=== PATIENT | male | born 1945 | race Caucasian/White ===

== ENCOUNTER → 2017-07-18 | Outpatient (CLI) | payer OTHER ==
[2017-07-18 14:46] LABS: ALT/SGPT 37 U/L (12-78); BLOOD UREA NITROGEN 18 mg/dl (7-18); BUN/CREATININE RATIO 14.8 (10-20); CALCIUM 9.5 mg/dl (8.5-10.1); CARBON DIOXIDE 24 mmol/L (21-32); CHLORIDE 107 mmol/L (98-107); CHOLESTEROL 237 mg/dl (0-200); GLUCOSE 102 mg/dl (70-99); POTASSIUM 3.9 mmol/L (3.5-5.1); SODIUM 140 mmol/L (136-145)
[2017-07-18 14:53] LABS: ALB/GLOB RATIO 1.1 (0.9-2); ALKALINE PHOSPHATASE 37 U/L (45-117); AST/SGOT 21 U/L (15-37); CHOLESTEROL/HDL RATIO 7.6; HDL CHOLESTEROL 31 mg/dl; LDL CHOLESTEROL CALCULATED 165 mg/dl; TRIGLYCERIDES 205 mg/dl (0-150); VERY LOW DENSITY LIPOPROT CALC 41 mg/dl
[2017-07-19 06:00] LABS: ESTIMATED AVERAGE GLUCOSE 140 mg/dl; HA1C FLAG Normal (Normal)
== END | disposition home or self-care (01) ==
LOC: C.LAB 13:09
PROVIDERS: ATTEND Family Medicine
DX: N40.0 Benign prostatic hyperplasia without lower urinary tract symptoms (principal); E11.39 Type 2 diabetes mellitus with other diabetic ophthalmic complication; E78.5 Hyperlipidemia, unspecified

== ENCOUNTER 2017-10-31 18:16 | Observation (INO) | payer OTHER, BC ==
[~2017-10-31] VITALS: Ht 175.3 cm; Wt 94.3 kg
--- NOTE | 2017-10-31 18:29 | EMERGENCY ROOM VISIT NOTE ---
History Report prepared by Lindsey: Kaushik English Under the Supervision of: Dr. Christopher Ellis M.D. First contact with patient: 18:18 Stated Complaint: CONFUSION, MEMORY ISSUES History of Present Illness The patient is a 72 year old male who presents to the Emergency Room with complaints of confusion that began 2 hours ago. Per the patient's , she states the patient did not remember a discussion about a trip to [place] from earlier today. The patient denies any falls, weakness in upper and lower extremities, headache, double vision, urinary symptoms, cough, chills, runny nose, neck pain, alcohol and drug use, and liver problems. The patient had a hemorrhagic stroke in 2013. Per his , he is back to his baseline currently. Source of History: patient, spouse/significant other Onset: 2 hours ago Position: other (global) Timing: other (1 episode) Associated Symptoms: No chills, No headache, No cough, No neck pain, No urinary symptoms, No weakness Note: Pt denies double vision, runny nose, and liver problems. Review of Systems See HPI for pertinent positives & negatives. A total of 10 systems reviewed and were otherwise negative. Past Medical & Surgical Medical Problems: (1) Memory deficit Social History Marital Status: Housing Status: lives with significant other Current/Historical Medications Scheduled Cholecalciferol (Vitamin D3), 1,000 INTER.UNIT PO DAILY Fenofibrate (Tricor ), 145 MG PO HS Finasteride (Proscar), 5 MG PO HS Fish Oil (Riggins-3), 1 CAP PO BID Losartan Potassium (Losartan Potassium), 25 MG PO HS Metformin Hcl (Glucophage), 1,000 MG PO BID [Prostrate], 2.4 MG PO BID Physical Exam Vital Signs Date Time Temp Pulse Resp B/P (MAP) Pulse Ox O2 Delivery O2 Flow Rate FiO2 10/31/17 19:31 81 18 133/87 93 Room Air 10/31/17 18:28 89 10/31/17 18:18 36.5 77 18 164/98 96 Room Air Physical Exam GENERAL: Patient is well appearing and in no acute distress. HEENT: No acute trauma, normocephalic atraumatic, mucous membranes moist, no nasal congestion, no scleral icterus. NECK: No stridor, no adenopathy, no meningismus, trachea is midline. LUNGS: No dyspnea. Clear to auscultation and equal bilaterally. No wheeze, no rhonchi. HEART: Regular rate and rhythm. No murmurs, rubs, gallops appreciated. ABDOMEN: Soft, nontender, bowel sounds positive, no masses appreciated, no peritonitis. BACK: No midline tenderness, no CVA tenderness EXTREMITIES: Normal motion all extremities, no cyanosis, no edema. NEUROLOGIC: Alert and oriented, no acute motor or sensory deficits, no focal weakness, cranial nerves grossly intact. SKIN: No rash, no jaundice, no diaphoresis. Medical Decision & Procedures ER Provider Diagnostic Interpretation: Radiology results and stated below per my review and radiologist interpretation: CHEST ONE VIEW PORTABLE CLINICAL HISTORY: Altered mental status. COMPARISON STUDY: No previous studies for comparison. FINDINGS: Lung volumes are normal. No pneumothorax or pleural effusion is present. There is no consolidation to suggest pneumonia. Apparent hazy left basilar opacity is likely artifactual. There is mild cardiomegaly without evidence of pulmonary edema. IMPRESSION: No acute cardiopulmonary findings. Electronically signed by: James Kim M.D. 10/31/2017 6:43 PM Dictated Date/Time: 10/31/2017 6:[address] OF THE HEAD WITHOUT CONTRAST CLINICAL HISTORY: Altered mental status. COMPARISON STUDY: No previous studies for comparison. CT DOSE: 537.48 mGy.cm TECHNIQUE: Helical axial images of the head were obtained without IV contrast. Automated exposure control was utilized for the study. A dose lowering technique was utilized adhering to the principles of ALARA. FINDINGS: No acute intracranial hemorrhage, midline shift or mass effect is present. Encephalomalacia within the right parieto-occipital region reflects an old infarct. There is expected dilatation of the occipital horn of the right lateral ventricle. The basilar cisterns are patent. There are no extra-axial collections. There are no findings to suggest acute dural sinus thrombosis or acute territorial infarct. There are no significant calvarial abnormalities. Visualized portions of the sinuses and mastoid air cells are clear. IMPRESSION: 1. No acute intracranial findings. 2. 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 Electronically signed by: James Kim M.D. 10/31/2017 7:17 PM Dictated Date/Time: 10/31/2017 7:15 PM Laboratory Results 10/31/17 18:36 Red Blood Count 4.80, Mean Corpuscular Volume 91.3, Mean Corpuscular Hemoglobin 30.4, Mean Corpuscular Hemoglobin Concent 33.3, Mean Platelet Volume 9.1, Neutrophils (%) (Auto) 60.7, Lymphocytes (%) (Auto) 31.5, Monocytes (%) (Auto) 6.3, Eosinophils (%) (Auto) 1.0, Basophils (%) (Auto) 0.1, Neutrophils # (Auto) 6.04, Lymphocytes # (Auto) 3.13, Monocytes # (Auto) 0.63, Eosinophils # (Auto) 0.10, Basophils # (Auto) 0.01 10/31/17 18:36 Test 10/31/17 18:24 10/31/17 18:36 White Blood Count 9.95 K/uL (4.8-10.8) Red Blood Count 4.80 M/uL (4.7-6.1) Hemoglobin 14.6 g/dL (14.0-18.0) Hematocrit 43.8 % (42-52) Mean Corpuscular Volume 91.3 fL (80-100) Mean Corpuscular Hemoglobin 30.4 pg (25-34) Mean Corpuscular Hemoglobin Concent 33.3 g/dl (32-36) Platelet Count 371 K/uL (130-400) Mean Platelet Volume 9.1 fL (7.4-10.4) Neutrophils (%) (Auto) 60.7 % Lymphocytes (%) (Auto) 31.5 % Monocytes (%) (Auto) 6.3 % Eosinophils (%) (Auto) 1.0 % Basophils (%) (Auto) 0.1 % Neutrophils # (Auto) 6.04 K/uL (1.4-6.5) Lymphocytes # (Auto) 3.13 K/uL (1.2-3.4) Monocytes # (Auto) 0.63 K/uL (0.11-0.59) Eosinophils # (Auto) 0.10 K/uL (0-0.5) Basophils # (Auto) 0.01 K/uL (0-0.2) RDW Standard Deviation 45.6 fL (36.4-46.3) RDW Coefficient of Variation 13.7 % (11.5-14.5) Immature Granulocyte % (Auto) 0.4 % Immature Granulocyte # (Auto) 0.04 K/uL (0.00-0.02) Prothrombin Time 11.2 SECONDS (9.0-12.0) Prothromb Time International Ratio 1.1 (0.9-1.1) Activated Partial Thromboplast Time 25.2 SECONDS (21.0-31.0) Partial Thromboplastin Ratio 1.0 Anion Gap 7.0 mmol/L (3-11) Est Creatinine Clear Calc Drug Dose 53.5 ml/min Estimated GFR () 57.4 Estimated GFR (Non- 49.5 BUN/Creatinine Ratio 16.6 (10-20) Calcium Level 9.5 mg/dl (8.5-10.1) Total Bilirubin 0.4 mg/dl (0.2-1) Direct Bilirubin < 0.1 mg/dl (0-0.2) Aspartate Amino Transf (AST/SGOT) 25 U/L (15-37) Alanine Aminotransferase (ALT/SGPT) 43 U/L (12-78) Alkaline Phosphatase 35 U/L (45-117) Troponin I < 0.015 ng/ml (0-0.045) Total Protein 7.8 gm/dl (6.4-8.2) Albumin 3.9 gm/dl (3.4-5.0) Laboratory results as reviewed by me. Medications Administered Medications (Trade) Dose Ordered Sig/Shayne Route Start Time Stop Time Status Last Admin Dose Admin Sodium Chloride 1,000 ml @ 999 mls/hr Q1H1M STAT IV 10/31/17 19:20 10/31/17 20:20 DC 10/31/17 19:20 999 MLS/HR ECG Indication: other (confusion) Rate (beats per minute): 85 Rhythm: normal sinus Findings: no acute ischemic change, no ectopy ED Course 1817: The patient was evaluated in room B7. A complete history and physical exam was performed. 1926: I checked on the patient and they are doing better. 1939: I discussed the patient's case with Dr. Barksdale. The patient will be evaluated for further treatment and disposition. Medical Decision Differential: CVA/TIA, Seizure, Infectious, ICH, Cardiac, Electrolyte, amongst other pathologies entertained. 72 yr old male arrives following prolonged episode of confusion this evening extending even for EMS ride though essentially resolved on arrival. Exam benign. history of hemorrhagic occipital stroke with visual field deficits but otherwise no neuro deficits. Work-up unremarkable. He is not on any blood thinners. Unclear cause but suspect this was TIA vs partial seizure. May have been dehydration though no real reason to have this. Medication Reconcilliation Current Medication List: was personally reviewed by me Blood Pressure Screening Patient's blood pressure: Elevated blood pressure Blood pressure disposition: Elevated BP felt to be situational Consults Time Called: 1938 Consulting Physician: Dr. Barksdale - [facility] [place] Returned Call: 1939 I discussed the patient's case with Dr. Barksdale. The patient will be evaluated for further treatment and disposition. Impression Primary Impression: Altered mental status Scribe Attestation The scribe's documentation has been prepared under my direction and personally reviewed by me in its entirety. I confirm that the note above accurately reflects all work, treatment, procedures, and medical decision making performed by me. Departure Information Referrals Moo Montero M.D. (PCP)
--- NOTE | 2017-10-31 18:45 | DIAGNOSTIC IMAGING REPORT ---
CHEST ONE VIEW PORTABLE CLINICAL HISTORY: Altered mental status. COMPARISON STUDY: No previous studies for comparison. FINDINGS: Lung volumes are normal. No pneumothorax or pleural effusion is present. There is no consolidation to suggest pneumonia. Apparent hazy left basilar opacity is likely artifactual. There is mild cardiomegaly without evidence of pulmonary edema. IMPRESSION: No acute cardiopulmonary findings. Electronically signed by: James Kim M.D. 10/31/2017 6:43 PM Dictated Date/Time: 10/31/2017 6:43 PM
[2017-10-31] MEDS ORDERED: METF-384 PO (18:55)
[2017-10-31] MEDS ORDERED: OMEG10007 PO (18:55)
[2017-10-31] MEDS ORDERED: CHOL1000 PO (18:55)
[2017-10-31] MEDS ORDERED: FENO145T26 PO (18:55)
[2017-10-31] MEDS ORDERED: FINA5TAB PO (18:55)
[2017-10-31] MEDS ORDERED: [UNRECOGNIZED DRUG - OTHER] PO (18:55)
[2017-10-31] MEDS ORDERED: CZR25 PO (18:55)
[2017-10-31 18:58] LABS: BASO % 0.1 %; BASO ABS # 0.01 K/uL (0-0.2); HEMATOCRIT 43.8 % (42-52); HEMOGLOBIN 14.6 g/dL (14.0-18.0); IG# 0.04 K/uL (0.00-0.02); LYMPH % 31.5 %; LYMPH ABS # 3.13 K/uL (1.2-3.4); MEAN CELL VOLUME 91.3 fL (80-100); MEAN CORPUSCULAR HEMOGLOBIN 30.4 pg (25-34); MEAN CORPUSCULAR HGB CONC 33.3 g/dl (32-36); MEAN PLATELET VOLUME 9.1 fL (7.4-10.4); MONO % 6.3 %; MONO ABS # 0.63 K/uL (0.11-0.59); NEUT % 60.7 %; NEUT ABS # 6.04 K/uL (1.4-6.5); PLATELET COUNT 371 K/uL (130-400); RED CELL DISTRIBUTION WIDTH CV 13.7 % (11.5-14.5); RED CELL DISTRIBUTION WIDTH SD 45.6 fL (36.4-46.3); WHITE BLOOD COUNT 9.95 K/uL (4.8-10.8)
[2017-10-31 19:13] LABS: INR 1.1 (0.9-1.1); PTT PATIENT 25.2 SECONDS (21.0-31.0)
[2017-10-31 19:17] LABS: ALBUMIN 3.9 gm/dl (3.4-5.0); BLOOD UREA NITROGEN 23 mg/dl (7-18); CALCIUM 9.5 mg/dl (8.5-10.1); CARBON DIOXIDE 26 mmol/L (21-32); GLUCOSE 110 mg/dl (70-99); POTASSIUM 3.8 mmol/L (3.5-5.1); SODIUM 138 mmol/L (136-145)
--- NOTE | 2017-10-31 19:19 | DIAGNOSTIC IMAGING REPORT ---
CT OF THE HEAD WITHOUT CONTRAST CLINICAL HISTORY: Altered mental status. COMPARISON STUDY: No previous studies for comparison. CT DOSE: 537.48 mGy.cm TECHNIQUE: Helical axial images of the head were obtained without IV contrast. Automated exposure control was utilized for the study. A dose lowering technique was utilized adhering to the principles of ALARA. FINDINGS: No acute intracranial hemorrhage, midline shift or mass effect is present. Encephalomalacia within the right parieto-occipital region reflects an old infarct. There is expected dilatation of the occipital horn of the right lateral ventricle. The basilar cisterns are patent. There are no extra-axial collections. There are no findings to suggest acute dural sinus thrombosis or acute territorial infarct. There are no significant calvarial abnormalities. Visualized portions of the sinuses and mastoid air cells are clear. IMPRESSION: 1. No acute intracranial findings. 2. 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 Electronically signed by: James Kim M.D. 10/31/2017 7:17 PM Dictated Date/Time: 10/31/2017 7:15 PM
[2017-10-31] MEDS ORDERED: SODIUM CHLORIDE 0.9% 1000ML 1,000 ML IV STA (19:20)
[2017-10-31 19:34] LABS: ALKALINE PHOSPHATASE 35 U/L (45-117); ALT/SGPT 43 U/L (12-78); AST/SGOT 25 U/L (15-37); TOTAL PROTEIN 7.8 gm/dl (6.4-8.2)
[2017-10-31] MEDS ORDERED: IV FLUIDS COMPLETED PRN (21:00)
[2017-10-31] MEDS ORDERED: MoRPHine SULFATE 2 MG/ML CARP IV PRN (21:00)
[2017-10-31] MEDS ORDERED: ALUMINUM/MAGNESIUM/SIMETH (MAALOX MAX) 30 ML UDC PO PRN (21:00)
[2017-10-31] MEDS ORDERED: MAGNESIUM HYDROXIDE SUSP 30 ML UDC PO PRN (21:00)
[2017-10-31] MEDS ORDERED: ONDANSETRON INJ 2 MG/ML 2 ML VIAL IV PRN (21:00)
[2017-10-31] MEDS ORDERED: ACETAMINOPHEN 325 MG TAB PO PRN (21:00)
[2017-10-31] MEDS ORDERED: PHARMACIST DISCHARGE MED REC CONSULT PRN (21:00)
[2017-10-31] MEDS ORDERED: POLYETHYLENE (MIRALAX) 17 GM PACK PO PRN (21:00)
[2017-10-31] MEDS ORDERED: PATIENT'S ALLERGY INFO NEEDS ENTERED STA (21:19)
--- NOTE | 2017-10-31 21:41 | History and Physical ---
History & Physical Date & Time of Service: Oct 31, 2017 at 21:12 Chief Complaint: Confusion, Memory Issues Primary Care Physician: Caleb Moss D.O. History of Present Illness Source: patient 72 y/o M Hx HTN, HPL, spontaneous ICH 2013. Late afternoon, the pt exhibited acute memory loss and what his describes as a flat affect lasting approximately one hour. The pt denies a headache, fever, N/V, lightheadedness. He has not had scott such episodes and has fully recovered his memory at the time of admission. 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 Smoking Status: Former Smoker Marital Status: Home Medications Scheduled Cholecalciferol (Vitamin D3), 1,000 INTER.UNIT PO DAILY Fenofibrate (Tricor ), 145 MG PO HS Finasteride (Proscar), 5 MG PO HS Fish Oil (Pettus-3), 1 CAP PO BID Losartan Potassium (Losartan Potassium), 25 MG PO HS Metformin Hcl (Glucophage), 1,000 MG PO BID [Prostrate], 2.4 MG PO BID Review of Systems Constitutional: No fever, No chills, No sweats Eyes: No worsening of vision ENT: No hearing loss, No nasal symptoms Respiratory: No cough, No sputum, No wheezing Cardiovascular: No chest pain Abdomen: No pain, No nausea, No vomiting Musculoskeletal: No joint pain Genitourinary - Male: No hematuria Neurologic: + memory loss, + problem reported (Chronic visual deficits) Psychiatric: No depression symptoms Endocrine: No fatigue Hematologic / Lymphatic: No abnormal bleeding/bruising Integumentary: No rash Allergic / Immunologic: No environmental allergies Physical Exam Vital Signs Date Time Temp Pulse Resp B/P (MAP) Pulse Ox O2 Delivery O2 Flow Rate FiO2 10/31/17 21:08 78 18 123/73 96 Room Air 10/31/17 19:31 81 18 133/87 93 Room Air 10/31/17 18:28 89 10/31/17 18:18 36.5 77 18 164/98 96 Room Air General Appearance: WD/WN, no apparent distress Head: normocephalic Eyes: normal inspection ENT: normal ENT inspection, pharynx normal Neck: supple, no JVD Respiratory/Chest: chest non-tender, lungs clear, normal breath sounds Cardiovascular: regular rate, rhythm, no edema, no gallop Abdomen/GI: normal bowel sounds, non tender, soft Back: normal inspection, no CVA tenderness, no muscle spasm, normal range of motion Extremities/Musculoskelatal: normal inspection, no calf tenderness, normal capillary refill Neurologic/Psych: grain grader II-XII nml as tested, no motor/sensory deficits, alert, oriented x 3, + pertinent finding (Pt has peripheral field deficits - does not note a change - memory is intact - short and long-term) Skin: normal color, warm/dry, no rash Diagnostics Laboratory Results Results Past 24 Hours Test 10/31/17 18:36 10/31/17 21:10 Range/Units White Blood Count 9.95 4.8-10.8 K/uL Red Blood Count 4.80 4.7-6.1 M/uL Hemoglobin 14.6 14.0-18.0 g/dL Hematocrit 43.8 42-52 % Mean Corpuscular Volume 91.3 80-100 fL Mean Corpuscular Hemoglobin 30.4 25-34 pg Mean Corpuscular Hemoglobin Concent 33.3 32-36 g/dl Platelet Count 371 130-400 K/uL Mean Platelet Volume 9.1 7.4-10.4 fL Neutrophils (%) (Auto) 60.7 % Lymphocytes (%) (Auto) 31.5 % Monocytes (%) (Auto) 6.3 % Eosinophils (%) (Auto) 1.0 % Basophils (%) (Auto) 0.1 % Neutrophils # (Auto) 6.04 1.4-6.5 K/uL Lymphocytes # (Auto) 3.13 1.2-3.4 K/uL Monocytes # (Auto) 0.63 0.11-0.59 K/uL Eosinophils # (Auto) 0.10 0-0.5 K/uL Basophils # (Auto) 0.01 0-0.2 K/uL RDW Standard Deviation 45.6 36.4-46.3 fL RDW Coefficient of Variation 13.7 11.5-14.5 % Immature Granulocyte % (Auto) 0.4 % Immature Granulocyte # (Auto) 0.04 0.00-0.02 K/uL Prothrombin Time 11.2 9.0-12.0 SECONDS Prothromb Time International Ratio 1.1 0.9-1.1 Activated Partial Thromboplast Time 25.2 21.0-31.0 SECONDS Partial Thromboplastin Ratio 1.0 Sodium Level 138 136-145 mmol/L Potassium Level 3.8 3.5-5.1 mmol/L Chloride Level 105 98-107 mmol/L Carbon Dioxide Level 26 21-32 mmol/L Anion Gap 7.0 3-11 mmol/L Blood Urea Nitrogen 23 7-18 mg/dl Creatinine 1.40 0.60-1.40 mg/dl Est Creatinine Clear Calc Drug Dose 53.5 ml/min Estimated GFR () 57.4 Estimated GFR (Non- 49.5 BUN/Creatinine Ratio 16.6 10-20 Random Glucose 110 70-99 mg/dl Calcium Level 9.5 8.5-10.1 mg/dl Total Bilirubin 0.4 0.2-1 mg/dl Direct Bilirubin < 0.1 0-0.2 mg/dl Aspartate Amino Transf (AST/SGOT) 25 15-37 U/L Alanine Aminotransferase (ALT/SGPT) 43 12-78 U/L Alkaline Phosphatase 35 45-117 U/L Troponin I < 0.015 0-0.045 ng/ml Total Protein 7.8 6.4-8.2 gm/dl Albumin 3.9 3.4-5.0 gm/dl Diagnostic Radiology 1. No acute intracranial findings. 2. 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 Impression Assessment and Plan 72 y/o M Hx HTN, HPL, spontaneous ICH 2013. Late afternoon, the pt exhibited acute memory loss and what his describes as a flat affect lasting approximately one hour. The pt denies a headache, fever, N/V, lightheadedness. He has not had scott such episodes and has fully recovered his memory at the time of admission. 1) Transient memory loss - consider TIA, TGA, seizure - neurology is consulted. MRI/MRA ordered. Assigned to telemetry with neurochecks. The pt was instructed to avoid ASA and Statins following his spontaneous ICH - it might make sense to consider Statin therapy now - will defer to neurology. 2) HTN - he has not been hypotensive and considering his presentation and history of ICH, we will continue his HTN meds presently. 3) HPL - cont Fenofibrate - again - would consider Statin therapy if the above is deemed likely due to a TIA. Full code - SCDs Total time for this admit including review of labs, meds, imaging - discussion with pt and ER attending - 38 min Level of Care Telemetry Resuscitation Status FULL RESUSCITATION VTE Prophylaxis VTE Risk Assessment Done? Y/N: Yes Risk Level: Low Given or contraindicated: SCD's
[2017-10-31] MEDS ORDERED: GADAVIST IV PRN (22:15)
--- NOTE | 2017-10-31 22:29 | DIAGNOSTIC IMAGING REPORT ---
MRI OF THE BRAIN WITHOUT CONTRAST CLINICAL HISTORY: Confusion. Memory issues. Evaluate for stroke. COMPARISON STUDY: Head CT performed earlier today. TECHNIQUE: Utilizing a 1.5 Laura magnet and dedicated coil, multiplanar, multiecho imaging of the brain was performed without IV contrast. FINDINGS: There is an equivocal punctate acute infarct within the superior medial left frontal lobe shown on axial image 19 of 46. This may be artifactual. An old right parietooccipital infarct is noted with encephalomalacia. Expected dilatation of the occipital horn of the right lateral ventricle is noted. The basilar cisterns are patent. There are no extra-axial collections. Flow-voids for the major intracranial vessels are present. No intracranial masses are identified on this unenhanced examination. White matter T2 hyperintense foci suggest small vessel disease. There is trace fluid within the inferior left mastoid air cells. IMPRESSION: 1. Equivocal punctate acute infarct within the superior medial left frontal lobe. 2. 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 Electronically signed by: James Kim M.D. 10/31/2017 10:28 PM Dictated Date/Time: 10/31/2017 10:24 PM
--- NOTE | 2017-10-31 22:33 | DIAGNOSTIC IMAGING REPORT ---
MRA OF THE INTRACRANIAL CIRCULATION WITHOUT CONTRAST CLINICAL HISTORY: Stroke - Attention to [place] [facility] [place] COMPARISON STUDY: None. TECHNIQUE: Utilizing a 1.5 Laura magnet and 3-D [id number] technique, unenhanced MRA of the intracranial circulation was obtained. FINDINGS: The bilateral M1, M2, A1 and A2 segments are patent. No intracranial aneurysm is identified. There is no abrupt vessel cut off within the anterior circulation. There is cut off of a branch of the right posterior cerebral artery which accounts for the old infarct shown on MRI of the brain. No additional sites of abrupt vessel cut off identified. IMPRESSION: 1. Cut off of a branch of the right posterior cerebral artery which accounts for the old infarct shown on MRI of the brain. 2. No intracranial aneurysm. Electronically signed by: James Kim M.D. 10/31/2017 10:32 PM Dictated Date/Time: 10/31/2017 10:28 PM
[2017-10-31 22:36] VITALS: BP 149/72; PULSE 74; TEMP 36.5; Ht 175.3 cm; Wt 94.3 kg
--- NOTE | 2017-10-31 22:49 | DIAGNOSTIC IMAGING REPORT ---
MRA OF THE NECK WITH AND WITHOUT CONTRAST CLINICAL HISTORY: Stroke COMPARISON STUDY: None. TECHNIQUE: Unenhanced and contrast-enhanced MRA of the neck was performed. Injection of 9.5 mL of Gadavist IV was uneventful. NASCET criteria were utilized to estimate the degree of carotid stenosis. FINDINGS: There is no significant stenosis within the bilateral common carotid or internal carotid arteries. There is no evidence for dissection within these vessels. The origin of the right vertebral artery is suboptimally assessed on this examination. The bilateral vertebral arteries are patent. There is possible stenosis at the origin of the right vertebral artery. IMPRESSION: 1. No significant stenosis within the bilateral common carotid or internal carotid arteries. 2. Possible stenosis at the origin of the right vertebral artery which is suboptimally assessed on this exam. Electronically signed by: James Kim M.D. 10/31/2017 10:48 PM Dictated Date/Time: 10/31/2017 10:44 PM
[2017-10-31] MEDS ORDERED: LATA0.5S OP (23:01)
[2017-10-31] MEDS ORDERED: ALPPOPS5 OP (23:02)
[2017-10-31 23:49] VITALS: BP 132/71; PULSE 69; TEMP 36.8; O2SAT 94
[2017-11-01] MEDS ORDERED: PATIENT'S ALLERGY INFO NEEDS ENTERED SCH (00:45)
[2017-11-01] MEDS: OMEGA-3 (PURIFIED FISH OIL) 1 GM CAP PO SCH ×2 (02:30→08:33)
[2017-11-01] MEDS ORDERED: FINASTERIDE 5 MG TAB PO SCH (02:30)
[2017-11-01] MEDS ORDERED: LOSARTAN POTASSIUM 25 MG TAB PO SCH (02:30)
[2017-11-01] MEDS ORDERED: FENOFIBRATE 145 MG TAB PO SCH (02:30)
[2017-11-01 04:00] VITALS: BP 113/71; PULSE 67; TEMP 36.9; O2SAT 95
[2017-11-01 06:02] LABS: BASO % 0.1 %; BASO ABS # 0.01 K/uL (0-0.2); EOS % 1.8 %; EOS ABS # 0.14 K/uL (0-0.5); HEMATOCRIT 39.4 % (42-52); HEMOGLOBIN 13.1 g/dL (14.0-18.0); IG# 0.02 K/uL (0.00-0.02); LYMPH % 41.2 %; LYMPH ABS # 3.28 K/uL (1.2-3.4); MEAN CELL VOLUME 91.2 fL (80-100); MEAN CORPUSCULAR HEMOGLOBIN 30.3 pg (25-34); MEAN CORPUSCULAR HGB CONC 33.2 g/dl (32-36); MONO % 9.2 %; MONO ABS # 0.73 K/uL (0.11-0.59); NEUT % 47.4 %; NEUT ABS # 3.78 K/uL (1.4-6.5); PLATELET COUNT 323 K/uL (130-400); RED CELL DISTRIBUTION WIDTH CV 13.7 % (11.5-14.5); RED CELL DISTRIBUTION WIDTH SD 45.8 fL (36.4-46.3); WHITE BLOOD COUNT 7.96 K/uL (4.8-10.8)
[2017-11-01 06:37] LABS: CALCIUM 8.6 mg/dl (8.5-10.1); CREATININE 1.16 mg/dl (0.60-1.40); POTASSIUM 3.7 mmol/L (3.5-5.1)
[2017-11-01 07:19] LABS: HEMOGLOBIN A1C 6.5 % (4.5-5.6)
[2017-11-01 07:22] VITALS: BP 129/75; PULSE 61; TEMP 36.6; O2SAT 95
[2017-11-01 08:00] VITALS: O2SAT 95
[2017-11-01] MEDS ORDERED: INFLUENZA VIRUS QUAD VACCINE 0.5 ML SYR IM. ONE (08:00)
[2017-11-01] MEDS ORDERED: INFLUENZA ADMINISTRATION CHARGE ONE (08:00)
[2017-11-01] MEDS ORDERED: ATORVASTATIN 40 MG TAB PO SCH (09:00)
[2017-11-01] MEDS ORDERED: ASPIRIN/ALUM/MAGNES/CAL CARB 325 MG TAB PO SCH (09:00)
[2017-11-01 11:13] VITALS: BP 157/82; PULSE 66; TEMP 36.7; O2SAT 94
--- NOTE | 2017-11-01 13:44 | Neurology Consultation ---
Neurology Consultation Date of Consultation: Nov 01, 2017. Attending Physician: Wade Barksdale M.D. Primary Care Physician: Caleb Moss D.O. Reason for Consultation: Consultation for acute mental status episode History of Present Illness Source: patient, family, hospital records This is a 72-year-old male who presents for the above evaluation. Patient does not remember the episode. Per family patient reported 1-2 hours of flat affect plus confusion. He was constantly repeating the same questions over and over again every few minutes without remembering that she had already discussed it with him. No new numbness or weakness. No visual changes. No recent illnesses. No fevers. No flulike symptoms. Patient denies any chest pain or heart palpitations. No shortness of breath. After a couple of hours the patient was back to his neurological baseline. Patient does have some thickened history for having a hemorrhagic stroke in 2013. He reports at the time it was believed to be secondary to high blood pressure but he was taken off aspirin and statin as a precaution. He was told by the neurologist at the time that the use of statin in hemorrhagic stroke was controversial. Lab work was reviewed. The patient did have mildly elevated BUN and creatinine which could've indicated a dehydrated state. Total cholesterol 216, LDL 136, HDL 20, triglycerides 299. Hemoglobin A1c 6.5 Vitals and blood pressure appeared stable MRI of the brain report and images were reviewed by myself. 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 There was a tiny ditzle in the left frontal area. Was only seen on one MRI slice , and appeared to be artifactual. Radiology reports that it could be a questionable punctate acute ischemic infarct versus artifact. I did not see any signs on MRI consistent with amyloid angiopathy. 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 Occasional alcohol use. No tobacco use. Marital Status: Housing Status: lives with significant other Allergies Coded Allergies: No Known Allergies (Unverified , 11/01/17) Current Inpatient Medications Current Inpatient Medications Medications (Trade) Dose Ordered Sig/Shayne Route Start Time Stop Time Status Last Admin Dose Admin Fenofibrate (Tricor Tab) 145 mg HS PO 11/01/17 02:30 12/01/17 02:29 Finasteride (Proscar Tab) 5 mg HS PO 11/01/17 02:30 12/01/17 02:29 Fish Oil (Martell-3 (Purified Fish Oil) Cap) 1 gm BID PO 11/01/17 02:30 12/01/17 02:29 11/01/17 08:33 1 GM Losartan Potassium (coZAAR TAB) 25 mg HS PO 11/01/17 02:30 12/01/17 02:29 Miscellaneous Information (Pharmacist Discharge Med Rec Consult) 1 ea UD PRN N/A 10/31/17 21:00 11/30/17 20:59 Acetaminophen (Tylenol Tab) 650 mg Q4H PRN PO 10/31/17 21:00 11/30/17 20:59 11/01/17 12:50 650 MG Al Hydrox/Mg Hydrox/Simethicone (Maalox Max Susp) 15 ml Q4H PRN PO 10/31/17 21:00 11/30/17 20:59 Magnesium Hydroxide (Milk Of Magnesia Susp) 30 ml Q12H PRN PO 10/31/17 21:00 11/30/17 20:59 Ondansetron HCl (Zofran Inj) 4 mg Q6H PRN IV 10/31/17 21:00 11/30/17 20:59 Morphine Sulfate (MoRPHine SULFATE INJ) 2 mg Q30M PRN IV 10/31/17 21:00 11/14/17 20:59 Polyethylene (Miralax Powder Packet) 17 gm DAILY PRN PO 10/31/17 21:00 11/30/17 20:59 Miscellaneous (Iv Fluids Completed) 1 ea PRN PRN N/A 10/31/17 21:00 10/31/18 20:59 Gadobutrol (Gadavist) 9.5 mmol UD PRN IV 10/31/17 22:15 11/04/17 22:14 Review of Systems Complete review of systems otherwise negative except for the above noted in history of present illness Physical Exam Vital Signs (Past 24 Hrs): Date Time Temp Pulse Resp B/P (MAP) Pulse Ox O2 Delivery O2 Flow Rate FiO2 1/6/18 11:13 36.7 66 18 157/82 (107) 94 Room Air 11/01/17 08:00 95 Room Air 11/01/17 07:22 36.6 61 18 129/75 (93) 95 Room Air 11/01/17 04:00 36.9 67 17 113/71 (85) 95 Room Air 11/01/17 04:00 Room Air 11/01/17 00:00 Room Air 10/31/17 23:49 36.8 69 18 132/71 (91) 94 Room Air 10/31/17 22:36 36.5 74 18 149/72 Room Air 10/31/17 21:08 78 18 123/73 96 Room Air 10/31/17 19:31 81 18 133/87 93 Room Air 10/31/17 18:28 89 10/31/17 18:18 36.5 77 18 164/98 96 Room Air Gen.: Patient is alert and sitting in bed, in no acute distress. HEENT: Normocephalic /atraumatic, no scleral icterus Heart: Regular rate and rhythm Extremities: No gross deformities or rashes noted Neurological examination: Mental status: Patient is alert and oriented x3. Attention and concentration normal for the situation. Good fund of knowledge. Remote and recent memory intact. Speech is fluent without any dysarthria or aphasia noted Cranial nerve: Left homonomous hemianopsia on visual field testing. Funduscopic examination was unremarkable. No papilledema. Pupils equally round and reactive to light. Extraocular muscles intact without nystagmus. No facial asymmetry noted. Facial sensation intact. Tongue is midline. Good palatal elevation. Good shoulder shrug bilaterally. Hearing grossly intact to voice. Strength: 5/5 both proximal and distally in all extremities. There is no arm drift. Tone is normal. Sensation: Grossly intact to light touch in all extremities. Deep tendon reflexes: +1 in bilateral biceps, brachioradialis and patellar. Toes were equivocal to plantar stimulation Coordination: Patient had good finger to nose without dysmetria Station within the bed was normal Laboratory Results Past 24 Hours: 11/01/17 05:38 Red Blood Count 4.32, Mean Corpuscular Volume 91.2, Mean Corpuscular Hemoglobin 30.3, Mean Corpuscular Hemoglobin Concent 33.2, Mean Platelet Volume 9.0, Neutrophils (%) (Auto) 47.4, Lymphocytes (%) (Auto) 41.2, Monocytes (%) (Auto) 9.2, Eosinophils (%) (Auto) 1.8, Basophils (%) (Auto) 0.1, Neutrophils # (Auto) 3.78, Lymphocytes # (Auto) 3.28, Monocytes # (Auto) 0.73, Eosinophils # (Auto) 0.14, Basophils # (Auto) 0.01 11/01/17 05:38 Test 10/31/17 18:36 10/31/17 21:00 11/01/17 05:38 11/01/17 11:44 Prothrombin Time 11.2 SECONDS (9.0-12.0) Prothromb Time International Ratio 1.1 (0.9-1.1) Activated Partial Thromboplast Time 25.2 SECONDS (21.0-31.0) Partial Thromboplastin Ratio 1.0 Estimated Average Glucose 140 mg/dl Hemoglobin A1c 6.5 % (4.5-5.6) Total Bilirubin 0.4 mg/dl (0.2-1) Direct Bilirubin < 0.1 mg/dl (0-0.2) Aspartate Amino Transf (AST/SGOT) 25 U/L (15-37) Alanine Aminotransferase (ALT/SGPT) 43 U/L (12-78) Alkaline Phosphatase 35 U/L (45-117) Troponin I < 0.015 ng/ml (0-0.045) Total Protein 7.8 gm/dl (6.4-8.2) Albumin 3.9 gm/dl (3.4-5.0) Urine Color YELLOW Urine Appearance CLEAR (CLEAR) Urine pH 5.0 (4.5-7.5) Urine Specific [place] 1.024 (1.000-1.030) Urine Protein NEG (NEG) Urine Glucose (UA) NEG (NEG) Urine Ketones NEG (NEG) Urine Occult Blood NEG (NEG) Urine Nitrite NEG (NEG) Urine Bilirubin NEG (NEG) Urine Urobilinogen NEG (NEG) Urine Leukocyte Esterase NEG (NEG) Urine WBC (Auto) 1-5 /hpf (0-5) Urine RBC (Auto) 0-4 /hpf (0-4) Urine Hyaline Casts (Auto) 1-5 /lpf (0-5) Urine Epithelial Cells (Auto) 5-10 /lpf (0-5) Urine Bacteria (Auto) NEG (NEG) White Blood Count 7.96 K/uL (4.8-10.8) Red Blood Count 4.32 M/uL (4.7-6.1) Hemoglobin 13.1 g/dL (14.0-18.0) Hematocrit 39.4 % (42-52) Mean Corpuscular Volume 91.2 fL (80-100) Mean Corpuscular Hemoglobin 30.3 pg (25-34) Mean Corpuscular Hemoglobin Concent 33.2 g/dl (32-36) Platelet Count 323 K/uL (130-400) Mean Platelet Volume 9.0 fL (7.4-10.4) Neutrophils (%) (Auto) 47.4 % Lymphocytes (%) (Auto) 41.2 % Monocytes (%) (Auto) 9.2 % Eosinophils (%) (Auto) 1.8 % Basophils (%) (Auto) 0.1 % Neutrophils # (Auto) 3.78 K/uL (1.4-6.5) Lymphocytes # (Auto) 3.28 K/uL (1.2-3.4) Monocytes # (Auto) 0.73 K/uL (0.11-0.59) Eosinophils # (Auto) 0.14 K/uL (0-0.5) Basophils # (Auto) 0.01 K/uL (0-0.2) RDW Standard Deviation 45.8 fL (36.4-46.3) RDW Coefficient of Variation 13.7 % (11.5-14.5) Immature Granulocyte % (Auto) 0.3 % Immature Granulocyte # (Auto) 0.02 K/uL (0.00-0.02) Anion Gap 9.0 mmol/L (3-11) Est Creatinine Clear Calc Drug Dose 64.3 ml/min Estimated GFR () 72.0 Estimated GFR (Non- 62.1 BUN/Creatinine Ratio 20.5 (10-20) Calcium Level 8.6 mg/dl (8.5-10.1) Triglycerides Level 299 mg/dl (0-150) Cholesterol Level 216 mg/dl (0-200) HDL Cholesterol 20 mg/dl LDL Cholesterol, Calculated 136 mg/dl VLDL Cholesterol, Calculated 60 mg/dl Cholesterol/HDL Ratio 10.8 Bedside Glucose 103 mg/dl (70-99) Imaging As noted above in history of present illness Impression This is a 72-year-old male who 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 There is a questionable finding on MRI of punctate lesion in the left frontal lobe indicating artifact versus ischemia. Otherwise the patient is at his neurological baseline with residual left homonomous hemianopsia from hemorrhagic stroke in 2014. Plan I have ordered a repeat MRI of the brain. My sense is that this is an artifact, but if repeat MRI of the brain confirms small area of acute ischemia, the patient needs further stroke workup. Discussed diagnosis of transient global amnesia with the patient and his daughter. Discussed that typically one-time event and rarely repeats. Discussed that we do not always know the cause. Also discussed with the patient my recommendations about cholesterol management. Discussed that more recent stroke data indicates that he should be on a statin medication to manage his vascular risk factors with dyslipidemia. Discussed that only a total cholesterol less than 100 puts him at risk for additional hemorrhagic strokes. So long as his total cholesterol is not dropped too low, statin medication would be beneficial for his vascular health and should not put him at increased risk for hemorrhagic strokes. Recommend that he could be started on low dose pravastatin for cholesterol management. 1) If repeat MRI confirms artifact: No additional neurologic workup needed at this time and no neurological barriers to discharge. If the patient has repeat episodes in the future, would need to get an EEG for further evaluation of possible seizure etiology. 2) If repeat MRI confirms punctate ischemic acute stroke: Patient would need echocardiogram to complete stroke workup and I would absolutely recommend that he be put on low-dose pravastatin for stroke prevention. Vascular risk factor modifications and recommendations: Blood pressure recommendations 130/80-110/70 Total cholesterol goal 100- 200 and LDL goal less than 100 Hemoglobin A1c goal less than 7 (at goal) Encourage cardiovascular exercise at least 3 times a week for 30 minutes. Follow-up in neurology clinic in 1 month if repeat MRI shows acute stroke. If repeat MRI shows acute stroke, would also recommend Holter monitor as an outpatient to rule out paroxysmal A. fib If there is any questions or concerns, feel free to call/page me.
--- NOTE | 2017-11-01 14:53 | DIAGNOSTIC IMAGING REPORT ---
MRI OF THE BRAIN WITHOUT CONTRAST CLINICAL HISTORY: Episodic acute change in mental status. Confusion. Memory loss. EQUIVOCAL LEFT FRONTAL LOBE INFARCT COMPARISON STUDY: Noncontrast head CT dated 10/31/2017, MRI the brain dated 10/31/2017. FINDINGS: Sagittal T1, axial diffusion, proton density and T2 weighted axial, coronal FLAIR, and axial T1-weighted images were acquired. No intra or extra-axial mass lesions are visualized Axial diffusion-weighted images reveal no evidence of acute or subacute infarction. The previously queried punctate left frontal lobe infarct is not confirmed on today's study. There is no evidence of ventricular dilatation. Proton density T2-weighted and FLAIR images reveal there is an old right parietal occipital infarct with cystic encephalomalacia There are no abnormal flow voids. Foci of increased T2 signal within the left mastoid remain stable and are likely inflammatory. IMPRESSION: 1. No acute intracranial findings. No evidence of acute or subacute infarction. 2. Old right parieto-occipital infarct Electronically signed by: Ford Pratt M.D. 11/01/2017 2:52 PM Dictated Date/Time: 11/01/2017 2:48 PM
[2017-11-01 15:02] VITALS: BP 167/78; PULSE 59; TEMP 36.9; O2SAT 97
[2017-11-01] MEDS ORDERED: ATOR-26 PO (17:48)
--- NOTE | 2017-11-01 17:54 | Discharge Instructions ---
Discharge Instructions Date of Service Nov 01, 2017. Admission Reason for Admission: Memory Deficit Discharge Discharge Diagnosis / Problem: Transient Global Seizure Discharge Goals Goal(s): Decrease discomfort, Improve function Activity Recommendations Activity Limitations: resume your previous activity . Instructions / Follow-Up Instructions / Follow-Up Vascular risk factor modifications and recommendations: Blood pressure recommendations 130/80-110/70 Total cholesterol goal 100- 200 and LDL goal less than 100 Hemoglobin A1c goal less than 7 (at goal) Encourage cardiovascular exercise at least 3 times a week for 30 minutes. Follow up with PCP in 1-2 weeks Current Hospital Diet Patient's current hospital diet: Regular Diet Discharge Diet Recommended Diet: Regular Diet Pending Studies Studies pending at discharge: no Laboratory Results Hemoglobin A1c Test 10/31/17 18:36 Range/Units Estimated Average Glucose 140 mg/dl Hemoglobin A1c 6.5 H 4.5-5.6 % Lipid Panel Test 11/01/17 05:38 Range/Units Triglycerides Level 299 H 0-150 mg/dl Cholesterol Level 216 H 0-200 mg/dl HDL Cholesterol 20 mg/dl Cholesterol/HDL Ratio 10.8 LDL Cholesterol, Calculated 136 mg/dl Medical Emergencies . Who to Call and When: Medical Emergencies: If at any time you feel your situation is an emergency, please call 911 immediately. . Non-Emergent Contact Non-Emergency issues call your: Primary Care Provider Call Non-Emergent contact if: you have any medication questions . . "Provider Documentation" section prepared by Jude Bautista. . VTE Core Measure Inpt VTE Proph given/why not?: SCD's
[2017-11-01 18:03] VITALS: BP 167/78; PULSE 59; TEMP 36.9; O2SAT 97
--- NOTE | 2017-11-09 21:52 | Discharge Summary ---
Discharge Summary Date of Service Nov 09, 2017. Discharge Summary Admission Date: Oct 31, 2017 at 20:51 Discharge Date: Nov 01, 2017 Discharge Disposition: Home Principal Diagnosis: Transient Global Amnesia Consultations: Neurology Consultation Date of Consultation: Nov 01, 2017. Attending Physician: Wade Barksdale M.D. Primary Care Physician: Caleb Moss D.O. Reason for Consultation: Consultation for acute mental status episode History of Present Illness Source: patient, family, hospital records This is a 72-year-old male who presents for the above evaluation. Patient does not remember the episode. Per family patient reported 1-2 hours of flat affect plus confusion. He was constantly repeating the same questions over and over again every few minutes without remembering that she had already discussed it with him. No new numbness or weakness. No visual changes. No recent illnesses. No fevers. No flulike symptoms. Patient denies any chest pain or heart palpitations. No shortness of breath. After a couple of hours the patient was back to his neurological baseline. Patient does have some thickened history for having a hemorrhagic stroke in 2013. He reports at the time it was believed to be secondary to high blood pressure but he was taken off aspirin and statin as a precaution. He was told by the neurologist at the time that the use of statin in hemorrhagic stroke was controversial. Lab work was reviewed. The patient did have mildly elevated BUN and creatinine which could've indicated a dehydrated state. Total cholesterol 216, LDL 136, HDL 20, triglycerides 299. Hemoglobin A1c 6.5 Vitals and blood pressure appeared stable MRI of the brain report and images were reviewed by myself. 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 There was a tiny ditzle in the left frontal area. Was only seen on one MRI slice , and appeared to be artifactual. Radiology reports that it could be a questionable punctate acute ischemic infarct versus artifact. I did not see any signs on MRI consistent with amyloid angiopathy. 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 Occasional alcohol use. No tobacco use. Marital Status: Housing Status: lives with significant other Allergies Coded Allergies: No Known Allergies (Unverified , 11/01/17) Current Inpatient Medications Current Inpatient Medications Medications (Trade) Dose Ordered Sig/Shayne Route Start Time Stop Time Status Last Admin Dose Admin Fenofibrate (Tricor Tab) 145 mg HS PO 11/01/17 02:30 12/01/17 02:29 Finasteride (Proscar Tab) 5 mg HS PO 11/01/17 02:30 12/01/17 02:29 Fish Oil (Darwin-3 (Purified Fish Oil) Cap) 1 gm BID PO 11/01/17 02:30 12/01/17 02:29 11/01/17 08:33 1 GM Losartan Potassium (coZAAR TAB) 25 mg HS PO 11/01/17 02:30 12/01/17 02:29 Miscellaneous Information (Pharmacist Discharge Med Rec Consult) 1 ea UD PRN N/A 10/31/17 21:00 11/30/17 20:59 Acetaminophen (Tylenol Tab) 650 mg Q4H PRN PO 10/31/17 21:00 11/30/17 20:59 11/01/17 12:50 650 MG Al Hydrox/Mg Hydrox/Simethicone (Maalox Max Susp) 15 ml Q4H PRN PO 10/31/17 21:00 11/30/17 20:59 Magnesium Hydroxide (Milk Of Magnesia Susp) 30 ml Q12H PRN PO 10/31/17 21:00 11/30/17 20:59 Ondansetron HCl (Zofran Inj) 4 mg Q6H PRN IV 10/31/17 21:00 11/30/17 20:59 Morphine Sulfate (MoRPHine SULFATE INJ) 2 mg Q30M PRN IV 10/31/17 21:00 11/14/17 20:59 Polyethylene (Miralax Powder Packet) 17 gm DAILY PRN PO 10/31/17 21:00 11/30/17 20:59 Miscellaneous (Iv Fluids Completed) 1 ea PRN PRN N/A 10/31/17 21:00 10/31/18 20:59 Gadobutrol (Gadavist) 9.5 mmol UD PRN IV 10/31/17 22:15 11/04/17 22:14 Review of Systems Complete review of systems otherwise negative except for the above noted in history of present illness Physical Exam Vital Signs (Past 24 Hrs): Date Time Temp Pulse Resp B/P (MAP) Pulse Ox O2 Delivery O2 Flow Rate FiO2 11/01/17 11:13 36.7 66 18 157/82 (107) 94 Room Air 11/01/17 08:00 95 Room Air 11/01/17 07:22 36.6 61 18 129/75 (93) 95 Room Air 11/01/17 04:00 36.9 67 17 113/71 (85) 95 Room Air 11/01/17 04:00 Room Air 11/01/17 00:00 Room Air 10/31/17 23:49 36.8 69 18 132/71 (91) 94 Room Air 10/31/17 22:36 36.5 74 18 149/72 Room Air 10/31/17 21:08 78 18 123/73 96 Room Air 10/31/17 19:31 81 18 133/87 93 Room Air 10/31/17 18:28 89 10/31/17 18:18 36.5 77 18 164/98 96 Room Air Gen.: Patient is alert and sitting in bed, in no acute distress. HEENT: Normocephalic /atraumatic, no scleral icterus Heart: Regular rate and rhythm Extremities: No gross deformities or rashes noted Neurological examination: Mental status: Patient is alert and oriented x3. Attention and concentration normal for the situation. Good fund of knowledge. Remote and recent memory intact. Speech is fluent without any dysarthria or aphasia noted Cranial nerve: Left homonomous hemianopsia on visual field testing. Funduscopic examination was unremarkable. No papilledema. Pupils equally round and reactive to light. Extraocular muscles intact without nystagmus. No facial asymmetry noted. Facial sensation intact. Tongue is midline. Good palatal elevation. Good shoulder shrug bilaterally. Hearing grossly intact to voice. Strength: 5/5 both proximal and distally in all extremities. There is no arm drift. Tone is normal. Sensation: Grossly intact to light touch in all extremities. Deep tendon reflexes: +1 in bilateral biceps, brachioradialis and patellar. Toes were equivocal to plantar stimulation Coordination: Patient had good finger to nose without dysmetria Station within the bed was normal Laboratory Results Past 24 Hours: 11/01/17 05:38 Red Blood Count 4.32, Mean Corpuscular Volume 91.2, Mean Corpuscular Hemoglobin 30.3, Mean Corpuscular Hemoglobin Concent 33.2, Mean Platelet Volume 9.0, Neutrophils (%) (Auto) 47.4, Lymphocytes (%) (Auto) 41.2, Monocytes (%) (Auto) 9.2, Eosinophils (%) (Auto) 1.8, Basophils (%) (Auto) 0.1, Neutrophils # (Auto) 3.78, Lymphocytes # (Auto) 3.28, Monocytes # (Auto) 0.73, Eosinophils # (Auto) 0.14, Basophils # (Auto) 0.01 11/01/17 05:38 Test 10/31/17 18:36 10/31/17 21:00 11/01/17 05:38 11/01/17 11:44 Prothrombin Time 11.2 SECONDS (9.0-12.0) Prothromb Time International Ratio 1.1 (0.9-1.1) Activated Partial Thromboplast Time 25.2 SECONDS (21.0-31.0) Partial Thromboplastin Ratio 1.0 Estimated Average Glucose 140 mg/dl Hemoglobin A1c 6.5 % (4.5-5.6) Total Bilirubin 0.4 mg/dl (0.2-1) Direct Bilirubin < 0.1 mg/dl (0-0.2) Aspartate Amino Transf (AST/SGOT) 25 U/L (15-37) Alanine Aminotransferase (ALT/SGPT) 43 U/L (12-78) Alkaline Phosphatase 35 U/L (45-117) Troponin I < 0.015 ng/ml (0-0.045) Total Protein 7.8 gm/dl (6.4-8.2) Albumin 3.9 gm/dl (3.4-5.0) Urine Color YELLOW Urine Appearance CLEAR (CLEAR) Urine pH 5.0 (4.5-7.5) Urine Specific [place] 1.024 (1.000-1.030) Urine Protein NEG (NEG) Urine Glucose (UA) NEG (NEG) Urine Ketones NEG (NEG) Urine Occult Blood NEG (NEG) Urine Nitrite NEG (NEG) Urine Bilirubin NEG (NEG) Urine Urobilinogen NEG (NEG) Urine Leukocyte Esterase NEG (NEG) Urine WBC (Auto) 1-5 /hpf (0-5) Urine RBC (Auto) 0-4 /hpf (0-4) Urine Hyaline Casts (Auto) 1-5 /lpf (0-5) Urine Epithelial Cells (Auto) 5-10 /lpf (0-5) Urine Bacteria (Auto) NEG (NEG) White Blood Count 7.96 K/uL (4.8-10.8) Red Blood Count 4.32 M/uL (4.7-6.1) Hemoglobin 13.1 g/dL (14.0-18.0) Hematocrit 39.4 % (42-52) Mean Corpuscular Volume 91.2 fL (80-100) Mean Corpuscular Hemoglobin 30.3 pg (25-34) Mean Corpuscular Hemoglobin Concent 33.2 g/dl (32-36) Platelet Count 323 K/uL (130-400) Mean Platelet Volume 9.0 fL (7.4-10.4) Neutrophils (%) (Auto) 47.4 % Lymphocytes (%) (Auto) 41.2 % Monocytes (%) (Auto) 9.2 % Eosinophils (%) (Auto) 1.8 % Basophils (%) (Auto) 0.1 % Neutrophils # (Auto) 3.78 K/uL (1.4-6.5) Lymphocytes # (Auto) 3.28 K/uL (1.2-3.4) Monocytes # (Auto) 0.73 K/uL (0.11-0.59) Eosinophils # (Auto) 0.14 K/uL (0-0.5) Basophils # (Auto) 0.01 K/uL (0-0.2) RDW Standard Deviation 45.8 fL (36.4-46.3) RDW Coefficient of Variation 13.7 % (11.5-14.5) Immature Granulocyte % (Auto) 0.3 % Immature Granulocyte # (Auto) 0.02 K/uL (0.00-0.02) Anion Gap 9.0 mmol/L (3-11) Est Creatinine Clear Calc Drug Dose 64.3 ml/min Estimated GFR () 72.0 Estimated GFR (Non- 62.1 BUN/Creatinine Ratio 20.5 (10-20) Calcium Level 8.6 mg/dl (8.5-10.1) Triglycerides Level 299 mg/dl (0-150) Cholesterol Level 216 mg/dl (0-200) HDL Cholesterol 20 mg/dl LDL Cholesterol, Calculated 136 mg/dl VLDL Cholesterol, Calculated 60 mg/dl Cholesterol/HDL Ratio 10.8 Bedside Glucose 103 mg/dl (70-99) Imaging As noted above in history of present illness Impression This is a 72-year-old male who 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 There is a questionable finding on MRI of punctate lesion in the left frontal lobe indicating artifact versus ischemia. Otherwise the patient is at his neurological baseline with residual left homonomous hemianopsia from hemorrhagic stroke in 2014. Plan I have ordered a repeat MRI of the brain. My sense is that this is an artifact, but if repeat MRI of the brain confirms small area of acute ischemia, the patient needs further stroke workup. Discussed diagnosis of transient global amnesia with the patient and his daughter. Discussed that typically one-time event and rarely repeats. Discussed that we do not always know the cause. Also discussed with the patient my recommendations about cholesterol management. Discussed that more recent stroke data indicates that he should be on a statin medication to manage his vascular risk factors with dyslipidemia. Discussed that only a total cholesterol less than 100 puts him at risk for additional hemorrhagic strokes. So long as his total cholesterol is not dropped too low, statin medication would be beneficial for his vascular health and should not put him at increased risk for hemorrhagic strokes. Recommend that he could be started on low dose pravastatin for cholesterol management. 1) If repeat MRI confirms artifact: No additional neurologic workup needed at this time and no neurological barriers to discharge. If the patient has repeat episodes in the future, would need to get an EEG for further evaluation of possible seizure etiology. 2) If repeat MRI confirms punctate ischemic acute stroke: Patient would need echocardiogram to complete stroke workup and I would absolutely recommend that he be put on low-dose pravastatin for stroke prevention. Vascular risk factor modifications and recommendations: Blood pressure recommendations 130/80-110/70 Total cholesterol goal 100- 200 and LDL goal less than 100 Hemoglobin A1c goal less than 7 (at goal) Encourage cardiovascular exercise at least 3 times a week for 30 minutes. Follow-up in neurology clinic in 1 month if repeat MRI shows acute stroke. If repeat MRI shows acute stroke, would also recommend Holter monitor as an outpatient to rule out paroxysmal A. fib If there is any questions or concerns, feel free to call/page me. <Electronically signed by Arlene Rodriguez D.O.> Medication Reconciliation New Medications: Atorvastatin (Lipitor) 80 Mg Tab 80 MG PO HS for 30 Days, #30 TAB Continued Medications: Brimonidine Tartrate (Alphagan P) 75 Drops/5 Ml Soln 1 DROPS OP BID, #5 ML 2 Refills Cholecalciferol (Vitamin D3) 1,000 Unit Tab 1000 INTER.UNIT PO DAILY for 90 Days, TAB 3 Refills Finasteride (Proscar) 5 Mg Tab 5 MG PO HS, TAB Fish Oil (Darwin-3) 1 Ea Cap 1 CAP PO BID, CAP Latanoprost (Xalatan 0.005% Oph Esme) 0.005 % Esme 1 DROPS OP HS, #7.5 ML 3 Refills Losartan Potassium (Losartan Potassium) 25 Mg Tab 25 MG PO HS Metformin Hcl (Glucophage) 1,000 Mg Tab 1000 MG PO BID, TAB [Prostrate] () 2.4 MG PO BID Discontinued Medications: Fenofibrate (Tricor ) 145 Mg Tab 145 MG PO HS, TAB Discharge Exam Review of Systems: Constitutional: No fever, No chills ENT: No hearing loss Respiratory: No cough, No sputum Cardiovascular: No chest pain Abdomen: No pain, No nausea Neurologic: + memory loss, No paralysis Hematologic / Lymphatic: No abnormal bleeding/bruising, No clotting problems Integumentary: No rash Physical Exam: General Appearance: WD/WN, no apparent distress Neck: supple, no adenopathy Respiratory/Chest: chest non-tender, lungs clear, normal breath sounds Cardiovascular: regular rate, rhythm, no edema Abdomen / GI: normal bowel sounds, non tender, soft Extremities: normal inspection Neurologic/Psychiatric: + pertinent finding (alert, oriented x 3, + pertinent finding (Pt has peripheral field deficits - does not note a change - memory is intact - short and long-term)) Skin: normal color Lymphatic: no adenopathy Hospital Course This is a 72-year-old male who 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 There is a questionable finding on MRI of punctate lesion in the left frontal lobe indicating artifact versus ischemia. Otherwise the patient is at his neurological baseline with residual left homonomous hemianopsia from hemorrhagic stroke in 2013. Admitted to tele Neuro consulted. Agreed with TGA diagnosis. Initially MRI had a punctate finding which was likely an artifact. Repeat imaging was negative Patient did not require any further work up. Neurologist and I discussed diagnosis of transient global amnesia with the patient and his daughter. Also discussed that typically one-time event and rarely repeats. \ Also discussed with the patient my recommendations about cholesterol management. Discussed that more recent stroke data indicates that he should be on a statin medication to manage his vascular risk factors with dyslipidemia. Discussed that only a total cholesterol less than 100 puts him at risk for additional hemorrhagic strokes. So long as his total cholesterol is not dropped too low, statin medication would be beneficial for his vascular health and should not put him at increased risk for hemorrhagic strokes. Recommend that he could be started on low dose pravastatin for cholesterol management. If the patient has repeat episodes in the future, would need to get an EEG for further evaluation of possible seizure etiology. Vascular risk factor modifications and recommendations: Blood pressure recommendations 130/80-110/70 Total cholesterol goal 100- 200 and LDL goal less than 100 Hemoglobin A1c goal less than 7 (at goal) Encourage cardiovascular exercise at least 3 times a week for 30 minutes. Total Time Spent: Greater than 30 minutes This includes examination of the patient, discharge planning, medication reconciliation, and communication with other providers. Discharge Instructions Please refer to the electronic Patient Visit Report (Discharge Instructions) for additional information. Follow-Up Vascular risk factor modifications and recommendations: Blood pressure recommendations 130/80-110/70 Total cholesterol goal 100- 200 and LDL goal less than 100 Hemoglobin A1c goal less than 7 (at goal) Encourage cardiovascular exercise at least 3 times a week for 30 minutes. Follow up with PCP in 1-2 weeks
== END 2017-11-01 18:35 | disposition home or self-care (01) ==
LOC: EDBD 18:16 → C.EDB 18:18 → C.MED 20:51 → ENRESERV 21:31
PROVIDERS: ADMIT Internal Medicine; ATTEND Internal Medicine
DX: G45.4 Transient global amnesia (principal); I10 Essential (primary) hypertension; E78.5 Hyperlipidemia, unspecified; Z86.73 Personal history of transient ischemic attack (TIA), and cerebral infarction without residual deficits; Z87.891 Personal history of nicotine dependence

== ENCOUNTER → 2018-02-04 | Outpatient (CLI) | payer OTHER, BC ==
[~2018-02-04] MED LIST: ALPPOPS5 OP; CHOL1000 PO; CZR25 PO; FINA5TAB PO; LATA0.5S OP; METF-384 PO; OMEG10007 PO; [UNRECOGNIZED DRUG - OTHER] PO
== END | disposition home or self-care (01) ==
LOC: C.LABSPEC 16:53
PROVIDERS: ATTEND Podiatrist Primary Podiatric Medicine
DX: B35.1 Tinea unguium (principal)

== ENCOUNTER 2019-09-15 17:02 | Inpatient (IN) ==
[2019-09-15] MEDS ORDERED: SODIUM CHLORIDE 0.9% 500 ML IV ONE (17:13)
--- NOTE | 2019-09-15 17:34 | XRay Report ---
XR chest 1V portable CLINICAL HISTORY: Chest Pain dyspnea COMPARISON STUDY: 01/16/2019 FINDINGS: The bones soft tissues and hemidiaphragms are normal. The cardiomediastinal silhouette is n ormal. The lungs are clear. The pulmonary vasculature is normal. IMPRESSION: Negative chest. The above report was generated using voice recognition software. It may contain grammatical, syntax or spelling errors. Electronically signed by: Simon Green M.D. 09/15/2019 5:33 PM
[2019-09-15 18:02] LABS: Basophils # (auto) 0.02 K/uL (0-0.2); Basophils % (auto) 0.2 %; Eosinophils % (auto) 0.8 %; Hematocrit (blood only) 40.7 % (42-52); Immature Granulocytes # (auto) 0.02 K/uL (0.00-0.02); Immature Granulocytes % (auto) 0.2 %; Lymphocytes % (auto) 39.5 %; Mean Corpuscular Hemoglobin 30.6 pg (25-34); Mean Corpuscular Hgb Conc 34.4 g/dL (32-36); Mean Corpuscular Volume 88.9 fL (80-100); Mean Platelet Volume 8.9 fL (7.4-10.4); Monocytes # (auto) 1.03 K/uL (0.11-0.59); Monocytes % (auto) 8.5 %; Neutrophils # (auto) 6.18 K/uL (1.4-6.5); Neutrophils % (auto) 50.8 %; Platelet Count 296 K/uL (130-400); RDW Coefficient of Variation 13.7 % (11.5-14.5); RDW Standard Deviation 44.6 fL (36.4-46.3); Red Blood Count 4.58 M/uL (4.7-6.1); White Blood Count 12.15 K/uL (4.8-10.8)
[2019-09-15 18:19] LABS: Alanine Aminotransferase 38 U/L (12-78); Albumin Level 3.9 gm/dl (3.4-5.0); Aspartate Aminotransferase 20 U/L (15-37); BUN Creatinine Ratio 17.5 (10-20); Blood Urea Nitrogen 19 mg/dl (7-18); Calcium 9.2 mg/dl (8.5-10.1); Carbon Dioxide 25 mmol/L (21-32); Chloride 110 mmol/L (98-107); Creatinine Clr Calc Pharmacy 67.8 ml/min; Est GFR (African American) 78.3; Est GFR (Non-African American) 67.5; Glucose 86 mg/dl (70-99); Lipase 281 U/L (73-393); Magnesium 1.9 mg/dl (1.8-2.4); Potassium 3.7 mmol/L (3.5-5.1); Sodium 141 mmol/L (136-145)
[2019-09-15 18:24] LABS: Albumin Globulin Ratio 1.1 (0.9-2); Alkaline Phosphatase 73 U/L (45-117); Bilirubin,Total 0.4 mg/dl (0.2-1); Globulin 3.6 gm/dl (2.5-4.0); Phosphorus 3.5 mg/dl (2.5-4.9); Total Protein 7.5 gm/dl (6.4-8.2); Troponin I < 0.015 ng/ml (0-0.045)
--- NOTE | 2019-09-15 19:15 | Emergency Department Note ---
Entered by Rebecca Will acting as a scribe for History of Present Illness General Chief complaint: Cardiac Assessment Stated complaint: TIGHTNESS IN CHEST Time Seen by Provider: 09/15/19 17:13 History of Present Illness Provider complaint: chest pain Onset (ago): hour(s) 8 Location: chest Severity: similar to prior episodes (5 years ago when he was diagnosed with angina) Pain Consistency: + other (2 episodes) Maximum Pain Intensity: 1 Associated symptoms: + denies other symptoms (congestion, antacid use for reflux, nausea), + diaphoresis and + other (first episode lasted 30-45 minutes before resolving, second episode lasted 15 seconds); no cough, no fever/chills and no shortness of breath The patient is a 74 year old male who presents to the ED with complaints of 2 episodes of chest pain that started 8 hours ago. The patient states that when he woke up this morning, he had chest pain across his chest from right to left. The patient states that this pain lasted 30-45 minutes and then it completely resolved. The patient denies feeling of nausea and shortness of breath, but he states that he did become diaphoretic. The patient states that this feeling returned approximately 1 hour ago while he was sitting watching TV. The patient states that this time the pain only lasted for 15 seconds. The patient states that he had episodes similar to this 5 years ago when he was diagnosed with angina. The patient notes that he has had a stress test before but it was normal. The patient denies fever, chills, cough, congestion and antacid use for reflux. Home Medications Home Medications Medication Instructions Recorded Confirmed Type brimonidine [Alphagan P] 1 drp OPB BID 07/26/18 09/15/19 History cholecalciferol (vitamin D3) 2,000 unit PO QAM 07/26/18 09/15/19 History [Vitamin D3] latanoprost [Xalatan] 1 drp OPB HS 07/26/18 09/15/19 History losartan [Cozaar] 25 mg PO HS 07/26/18 09/15/19 History metformin [Glucophage] 1,000 mg PO BID 07/26/18 09/15/19 History omega-3 fatty acids-fish oil [Fish 1 cap PO BID 07/26/18 09/15/19 History Oil] atorvastatin 80 mg tablet 80 mg PO HS #90 tab 06/17/19 09/15/19 Rx finasteride [Proscar] 5 mg PO QAM 09/15/19 09/15/19 History Allergies Allergy/AdvReac Type Severity Reaction Status Date / Time No Known Allergies Allergy Verified 09/15/19 18:27 Past Med/Surg History Medical History Amyloidosis Angina pectoris, unspecified Hemorrhagic stroke Hypertension No significant past surgical history Type 2 diabetes mellitus Family History Brother Myocardial infarction Prostate cancer Social History Preferred Language: Serbian Communication Ability: Effective Visual Impairment: Diminished Hearing Ability: Normal Mosaic Tiler Required: No Beliefs That Will Affect Care: None marital status: Current Living Situation: Spouse and Family current occupational status: retired Other Information That Helps Us Care for You: No Feels Safe at Home: Yes Safety Concerns: Feels Safe At This Time Smoking Status: Former smoker Smoking End Date: 1970 ; Hx Alcohol Use: Yes Alcohol Intake Frequency: Rarely Hx Substance Use: No Childhood Exposure to Second-Hand Smoke: No Dental Care, Regularly: Yes Physical Activity Frequency: 5-6 Times per Week Seatbelt Use: always Sunscreen Use: Yes Review of Systems See HPI for pertinent positives & negatives. and A total of 10 systems reviewed and were otherwise negative Physical Exam Vital Signs Vital Signs - 24 hr 09/15/19 17:03 09/15/19 17:07 09/15/19 17:30 Temperature 36.7 C Temperature Source Oral Pulse Rate 66 79 70 Pulse Rate [Apical] Pulse Rate from SpO2 Sensor 69 Pulse Rhythm Regular Pulse Rhythm [Apical] Respiratory Rate 16 18 20 Respiratory Effort / Characteristics Respiratory Depth Respiratory Pattern Blood Pressure 182/73 H 172/86 H Blood Pressure [Right Arm] Blood Pressure Mean 109 122 Blood Pressure Mean [Right Arm] Pulse Oximetry 96 95 94 Oxygen Delivery Method Room Air Room Air Sepsis Recent Fever Within 48 Hours No Sepsis New/Unexplained Change in Mental Status No Sepsis Action Taken by Nursing No Action Required 09/15/19 18:00 09/15/19 18:30 09/15/19 18:57 Temperature Temperature Source Pulse Rate 77 86 Pulse Rate [Apical] 69 Pulse Rate from SpO2 Sensor 77 Pulse Rhythm Pulse Rhythm [Apical] Regular Respiratory Rate 20 17 14 Respiratory Effort / Characteristics Non-Labored Spontaneous Respiratory Depth Normal Respiratory Pattern Regular Blood Pressure 153/87 H 144/91 H Blood Pressure [Right Arm] 144/91 H Blood Pressure Mean 103 106 Blood Pressure Mean [Right Arm] 108 Pulse Oximetry 94 Oxygen Delivery Method Sepsis Recent Fever Within 48 Hours Sepsis New/Unexplained Change in Mental Status Sepsis Action Taken by Nursing 09/15/19 19:00 09/15/19 19:30 09/15/19 20:00 Temperature Temperature Source Pulse Rate 70 66 64 Pulse Rate [Apical] Pulse Rate from SpO2 Sensor 69 64 64 Pulse Rhythm Pulse Rhythm [Apical] Respiratory Rate 20 17 16 Respiratory Effort / Characteristics Respiratory Depth Respiratory Pattern Blood Pressure 146/70 H 124/78 151/91 H Blood Pressure [Right Arm] Blood Pressure Mean 88 91 113 Blood Pressure Mean [Right Arm] Pulse Oximetry 94 94 94 Oxygen Delivery Method Room Air Room Air Room Air Sepsis Recent Fever Within 48 Hours Sepsis New/Unexplained Change in Mental Status Sepsis Action Taken by Nursing GENERAL: Awake, alert, well-appearing, in no distress HENT: Normocephalic, atraumatic. Oropharynx with dry mucous membranes and otherwise unremarkable. EYES: Normal conjunctiva. Sclera non-icteric. NECK: Supple. No nuchal rigidity. FROM. No JVD. RESPIRATORY: Clear to auscultation bilaterally. CARDIAC: Regular rate, normal rhythm. Extremities warm and well perfused. Pulses equal. ABDOMEN: Soft, non-distended. No tenderness to palpation. No rebound or guarding. No masses. RECTAL: Deferred. MUSCULOSKELETAL: Chest examination reveals no tenderness. The back is symmetrical on inspection without obvious abnormality. There is no CVA tenderness to palpation. No joint edema. LOWER EXTREMITIES: Calves are equal size bilaterally and non-tender. No edema. No discoloration. NEURO: Normal sensorium. No sensory or motor deficits noted. SKIN: No rash or jaundice noted. Course Course 173: Past medical records reviewed. The patient was evaluated in room C02B. A complete history and physical exam was performed. 1914: I discussed the patient's case with Dr. Stephenson [facility] Hospitalist. She will evaluate the patient for further management. Continuous Cardiac Monitoring: Indication: Chest pain Rhythm: NSR Rate: 86 Other: 95% RA Consultations Consultation #1: I discussed the patient's case with Dr. Stephenson [facility] Hospitalist. She will evaluate the patient for further management. Time: 19:15 Administered Medications Atorvastatin Calcium (Lipitor) 80 mg PO HS JAMMIE Stop: 10/15/19 21:51 Last Admin: 09/15/19 22:47 Dose: 80 mg Documented by: [id number] Insulin Aspart (Novolog Flexpen) 0 units SC ACHS JAMMIE Stop: 10/15/19 21:51 Last Admin: 09/15/19 22:47 Dose: 2 units Documented by: [id number] Cosigned by: [id number] Latanoprost (Xalatan Oph) 1 drops OPB HS JAMMIE Stop: 10/15/19 21:51 Last Admin: 09/15/19 22:46 Dose: 1 drops Documented by: [id number] Losartan Potassium (Cozaar) 25 mg PO HS JAMMIE Stop: 10/15/19 21:51 Last Admin: 09/15/19 22:47 Dose: 25 mg Documented by: [id number] Miscellaneous (Order Awaiting Action) 1 ea N/A QS JAMMIE Stop: 10/15/19 22:14 Last Admin: 09/15/19 23:10 Dose: Not Given Documented by: [id number] Admin: 09/15/19 22:47 Dose: Not Given Documented by: [id number] Discontinued Medications Sodium Chloride (Nss) 500 mls @ 999 mls/hr IV .Q31M ONE Stop: 09/15/19 17:43 Last Infusion: 09/15/19 18:38 Dose: 0 mls/hr Documented by: [id number] Admin: 09/15/19 17:49 Dose: 999 mls/hr Documented by: [id number] Medical Decision Making Differential Diagnosis Differential diagnosis: Etiologies such as shingles, musculoskeletal pain, pericarditis, myocarditis, cardiac ischemia, pericardial tamponade, pneumonia, pneumothorax, pleural effusion, hemothorax, pleurisy, aortic pathology, pulmonary embolism, intra- abdominal process, as well as others were considered. Medical Records Attestation: I reviewed the patient's medical records. Home Medications Current Medication List: was personally reviewed by me Laboratory Data Attestation: I reviewed the patient's lab results. Result diagrams: 09/16/19 01:45 09/16/19 01:45 Lab Results 09/15/19 09/15/19 Range/Units 17:49 17:49 WBC 12.15 H (4.8-10.8) K/uL RBC 4.58 L (4.7-6.1) M/uL Hgb 14.0 (14.0-18.0) g/dL Hct 40.7 L (42-52) % MCV 88.9 (80-100) fL MCH 30.6 (25-34) pg MCHC 34.4 (32-36) g/dL RDW Std Deviation 44.6 (36.4-46.3) fL RDW Coeff of Marky 13.7 (11.5-14.5) % Plt Count 296 (130-400) K/uL MPV 8.9 (7.4-10.4) fL Immature Gran % (Auto) 0.2 % Neut % (Auto) 50.8 % Lymph % (Auto) 39.5 % [place] % (Auto) 8.5 % Eos % (Auto) 0.8 % Baso % (Auto) 0.2 % Immature Gran # (Auto) 0.02 (0.00-0.02) K/uL Neut # (Auto) 6.18 (1.4-6.5) K/uL Lymph # (Auto) 4.80 H (1.2-3.4) K/uL [place] # (Auto) 1.03 H (0.11-0.59) K/uL Eos # (Auto) 0.10 (0-0.5) K/uL Baso # (Auto) 0.02 (0-0.2) K/uL Sodium 141 (136-145) mmol/L Potassium 3.7 (3.5-5.1) mmol/L Chloride 110 H (98-107) mmol/L Carbon Dioxide 25 (21-32) mmol/L Anion Gap 6.0 (3-11) BUN 19 H (7-18) mg/dl Creatinine 1.07 (0.6-1.4) mg/dl Est Cr Clr Drug Dosing 67.8 ml/min Est GFR ( Amer) 78.3 Est GFR (Non-Af Amer) 67.5 BUN/Creatinine Ratio 17.5 (10-20) Glucose 86 (70-99) mg/dl Calcium 9.2 (8.5-10.1) mg/dl Phosphorus 3.5 (2.5-4.9) mg/dl Magnesium 1.9 (1.8-2.4) mg/dl Total Bilirubin 0.4 (0.2-1) mg/dl AST 20 (15-37) U/L ALT 38 (12-78) U/L Alkaline Phosphatase 73 (45-117) U/L Troponin I < 0.015 (0-0.045) ng/ml Total Protein 7.5 (6.4-8.2) gm/dl Albumin 3.9 (3.4-5.0) gm/dl Globulin 3.6 (2.5-4.0) gm/dl Albumin/Globulin Ratio 1.1 (0.9-2) Lipase 281 (73-393) U/L Imaging Data Radiologist's Impression: Radiology results as stated below per my review and the radiologist's interpretation: XR chest 1V portable CLINICAL HISTORY: Chest Pain dyspnea COMPARISON STUDY: 01/16/2019 FINDINGS: The bones soft tissues and hemidiaphragms are normal. The cardiomediastinal silhouette is normal. The lungs are clear. The pulmonary vasculature is normal. IMPRESSION: Negative chest. The above report was generated using voice recognition software. It may contain grammatical, syntax or spelling errors. Electronically signed by: Simon Green M.D. 09/15/2019 5:33 PM ECG Data Attestation: I personally reviewed and interpreted this ECG as follows: Indication: + chest pain Rate (beats per minute): 71 Rhythm: + normal sinus ECG Amery: + Normal ECG ST segments: + Normal ST segments ECG Findings: no PACs and no PVCs Blood Pressure Blood Pressure Findings: Elevated blood pressure Blood Pressure Disposition: further management by hospitalist JONATHAN Vieyra The patient is a pleasant 74-year-old gentleman with a past medical history of amyloidosis, hypertension, hyperlipidemia, diabetes who presents emergency department with 30-minute episode of chest pain when he woke up this morning and subsequent repeat episode around 4 PM lasting 15 to 20 seconds with associated sweating per hpi. Patient denies any shortness of breath or radiation of the symptoms. Patient reports he did have prior episodes remotely that he was told were "angina" but denies ever having any heart attack. He reports he has had negative stress test in the past. On arrival patient denies any symptoms at this time he is in no acute distress, afebrile stable vital signs. Exam is unremarkable. EKG without overt acute ischemia. Chest x-ray negative for acute process. WBC 12, nonspecfiic. Hbg and platelets within normal limits. Chemistry without acidosis. Electrolytes and LFTs unremarkable. Troponin negative/undetectable.Patient has a heart score of 5, moderate risk, therefore reasonable to admit the patient for further management. Patient was agreeable with this plan. Case was discussed with Dr. Camp, [facility] hospitalist, who evaluate the patient for admission. Impression & Plan Substernal chest pain, Hypertension, Diabetes, Amyloidosis Discharge Plan Visit Data *Final* Discharge Date/Time: 09/15/19 21:17 Chief Complaint: Cardiac Assessment Stated Complaint: TIGHTNESS IN CHEST ED Provider: Albert Veliz Discharge Problem: Substernal chest pain, Hypertension, Diabetes, Amyloidosis Patient Disposition: Admitted As Inpatient Discharge Instructions Interventions: ED Discharge Assessment Last Done: 09/15/19 21:17 Risk - HEART Scoring HEART Score for Major Cardiac Events History: Moderately Suspicious EKG: Normal Age: > 64 Years of Age Risk Factors: >2 Risk Factors Initial Troponin: Normal Limit Total Points: 5 Risk Level: Moderate Risk for Major Adverse Cardiac Event HEART Score Interpretation: Score interpretation (as per derivation study): HEART Adverse Cardiac Score Event Risk Management 0-3 0.9-1.7% In the HEART Score study, these patients were discharged. 4-6 12-16.6% In the HEART Score study, these patients were admitted to the hospital. 7-10 50-65% In the HEART Score study, these patients were candidates for early invasive measurements. Original Source: 1. Ned AJ, Otf BE, Latonia VIKI. Chest pain in the emergency room: value of the HEART score. Neth Heart J. 2008; 16(6):191-6. The scribe's documentation has been prepared under my direction and personally reviewed by me in its entirety. I confirm that the note above accurately reflects all work, treatment, procedures, and medical decision making performed by me.
--- NOTE | 2019-09-15 20:48 | History & Physical Report ---
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 Right-sided chest pain, history of angina Troponin negative on admission, EKG shows sinus rhythm with no acute ST changes, T wave inversions, or Q waves. Troponin every 8 hours x2 Episode self-limited, he is no longer symptomatic. Symptoms not reproducible on MSK exam. Episodes were not associated with exercise. He is able to use a treadmill at 2 to 3 mph every morning without chest pain. HEART Score 5 with a family history of ID in his brother at age 60. Last stress test 5-10 years ago, was able to tolerate an exercise stress at that time. Per patient results were normal. Cardiology consult placed for evaluation for stress test in moderate risk patient Aspirin 81 mg daily. Reviewed neurology notes, no amyloid plaques were noted to increase risk of intracranial bleeding with aspirin. CBC daily, BMP daily Type 2 diabetes mellitus Glucose checks AC/at bedtime Hold ORACLE DATABASE ANALYST metformin Insulin SSI Hemoglobin A1c pending Continue atorvastatin 80 mg daily Hypertension Continue ORACLE DATABASE ANALYST losartan 25 mg nightly History of BPH/urinary retention Continue finasteride 5 mg Diet: Type II diabetic, heart healthy CODE STATUS: Full code DVT prophylaxis: SCDs Disposition: Med telemetry (2) Amyloidosis: (3) Hypertension: (4) Type 2 diabetes mellitus: History of Present Illness Chief Complaint: Chest pain, diaphoresis Primary Care Provider: Caleb Moss DO Tay is a 74-year-old male with a past medical history of amyloidosis, 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 Tay reports that he awoke this morning and noticed he had 1/10 chest pain in his right chest which did not cross the sternum/midline, and did not travel into either shoulder or his jaw. He notes that the pain did not wake him up, he noticed the pain after he awoke. He felt sweaty, clammy, and had one chill but after getting up and moving all his symptoms resolved within 15 to 30 minutes. He did not experience any shortness of breath, lightheadedness, or dizziness. At 4 PM the day of admission he had a second similar episode with 11/05 chest tightness which felt like "a muscle ache "in his right chest when he was getting up from watching TV. He did not have any sweats, chills, lightheadedness, dizziness, or shortness of breath with this episode. It lasted for about 10 to 15 seconds and then passed. He was concerned given his history of stroke and a family history of heart disease, so he presented to the ED for evaluation. He has not had any change in his vision, no general weakness, and no focal weakness. He reports that he has a history of intermittent angina. He had a stress test more than 5 years ago which was normal at the time. He has not had a stress test since his stroke in 2013. Family history: Brother with ID at age 60. Unknown if he has a family history of hypertension. No family history of strokes. Surgical history: Tonsillectomy Social history: Endorses 1/2 pack/day cigarette use for 30 years, no tobacco use in the past 30 years Endorses 1 alcoholic drink per week Denies recreational drug use. 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 He notes that he was in [place] when he was younger, and was exposed to agent orange. Medications reviewed. No known medical allergies. Allergies Allergy/AdvReac Type Severity Reaction Status Date / Time No Known Allergies Allergy Verified 09/15/19 18:27 Home Medications Home Medications Medication Instructions Recorded Confirmed Type brimonidine [Alphagan P] 1 drp OPB BID 07/26/18 09/15/19 History cholecalciferol (vitamin D3) 2,000 unit PO QAM 07/26/18 09/15/19 History [Vitamin D3] latanoprost [Xalatan] 1 drp OPB HS 07/26/18 09/15/19 History losartan [Cozaar] 25 mg PO HS 07/26/18 09/15/19 History metformin [Glucophage] 1,000 mg PO BID 07/26/18 09/15/19 History omega-3 fatty acids-fish oil [Fish 1 cap PO BID 07/26/18 09/15/19 History Oil] atorvastatin 80 mg tablet 80 mg PO HS #90 tab 06/17/19 09/15/19 Rx finasteride [Proscar] 5 mg PO QAM 09/15/19 09/15/19 History Past Med/Surg History Medical History (Updated 09/15/19 @ 21:44 by Rebceca Will) Amyloidosis Angina pectoris, unspecified Hemorrhagic stroke Hypertension No significant past surgical history Type 2 diabetes mellitus Family History (Updated 08/09/19 @ 14:59 by Kymberly Rodriguez) Brother Myocardial infarction Prostate cancer Social History (Updated 08/09/19 @ 15:01 by Kymberly Rodriguez) Preferred Language: Guyanese Communication Ability: Effective Visual Impairment: Diminished Hearing Ability: Normal 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 Beliefs That Will Affect Care: None marital status: Current Living Situation: Spouse and Family current occupational status: retired Other Information That Helps Us Care for You: No Feels Safe at Home: Yes Safety Concerns: Feels Safe At This Time Smoking Status: Former smoker Smoking End Date: 1970 ; Hx Alcohol Use: Yes Alcohol Intake Frequency: Rarely Hx Substance Use: No Childhood Exposure to Second-Hand Smoke: No Dental Care, Regularly: Yes Physical Activity Frequency: 5-6 Times per Week Seatbelt Use: always Sunscreen Use: Yes Review of Systems Constitutional: as per Subjective / HPI Eyes: as per Subjective / HPI and + blind spots; no worsening vision Ear, Nose, Mouth, Throat: no ear pain, no hearing loss, no dizziness, no nasal congestion, no nasal obstruction and no dysphagia Respiratory: no cough, no chest congestion, no change in sputum, no dyspnea, no dyspnea on exertion and no pain on inspiration Cardiovascular: + chest pain; no radiating jaw, neck or arm pain, no dyspnea, no orthopnea, no palpitations, no lightheadedness and no edema Gastrointestinal: no abdominal pain, no nausea, no vomiting, no coffee ground emesis, no constipation, no diarrhea/loose stools, no blood in stools and no melena Genitourinary: no dysuria, no difficulty urinating and no urinary frequency Musculoskeletal: no back pain, no neck pain, no joint pain, no myalgia and no muscle weakness Integumentary: no lesions and no new lesions Neurologic: no gait abnormality, no unsteadiness, no falls, no localized weakness, no generalized weakness, no loss of sensation, no tingling, no numbness, no tremor(s), no syncope and no headache(s) Physical Exam Physical Exam: General: A&Ox3. NAD. Cooperative. Thought process linear, goal-directed. Speech fluent. HEENT: Atraumatic, normocephalic. Normal external ear anatomy. Normal external nasal anatomy. No scleral icterus. Extraocular movements intact without nystagmus, loses tracking on left gaze. Pupils equal and reactive to light and accommodation. Left-sided hemianopsia with approximately 45% loss of visual arc to confrontation. No nasolabial flattening or hypertonicity. No facial asymmetry. Facial strength and sensation intact in all distributions. Mucous membranes moist. Posterior oropharynx without erythema, exudate. Uvula midline. No cervical anterior/posterior adenopathy, no clavicular adenopathy. Neck supple. Pulm: CTAB A&P. -wheezes, -rales, -rhonchi. Symmetrical chest rise. No increase work of breathing. No respiratory distress. Cardiac: RRR, i/vi systolic murmur, -rg. Radial pulses intact and symmetrical. PT pulses intact and symmetrical Abdominal: Nontender, nondistended, soft. BS present. Extremity: Sensation intact in hallux bilaterally and distal fingertips bilaterally without deficit to soft touch. Finger flexion/extension, interosseous, wrist flexion/extension, elbow flexion/extension, shoulder internal rotation/external rotation/flexion/extension, hip flexion, knee flexion/extension, ankle plantarflexion/dorsiflexion 5/5 without asymmetry. Results & Data Vital Signs (Past 12 Hours) Vital Signs Temp Pulse Pulse Resp BP BP Pulse Ox 09/15/19 20:00 64 16 151/91 H 94 09/15/19 19:30 66 17 124/78 94 09/15/19 19:00 70 20 146/70 H 94 09/15/19 18:57 69 14 144/91 H 09/15/19 18:30 86 17 144/91 H 94 09/15/19 18:00 77 20 153/87 H 09/15/19 17:30 70 20 172/86 H 94 09/15/19 17:07 36.7 C 79 18 182/73 H 95 09/15/19 17:03 66 16 96 Code Status & VTE Plan VTE Prophylaxis Plan VTE Prophylaxis will be ordered: Yes Supervising Physician Co-Signing Physician Notes Patient seen and examined, chart reviewed, case discussed with Dr. Mo and I agree with his assessment and plan as documented above. Briefly, patient is a 74-year-old male with history of type 2 diabetes, hypertension, hyperlipidemia, amyloidosis presenting with 2 episodes of right-sided/midline chest tightness with associated diaphoresis. Pain is mild, 1 out of 10 in severity. Presently chest pain-free. On arrival to the ER he is found to be afebrile, hemodynamically stable, no acute distress. Chest pain-free. Generalnontoxic in appearance, lying comfortably in bed Skinwarm, dry, intact, no rashes/lesions HEENTnormocephalic/atraumatic, pupils equal round and reactive, moist mucous membranes, neck supple, no JVD HeartS1-S2 present, regular with respiratory variation, no murmurs rubs or gallops, no reproducible chest wall discomfort or epigastric pain, no rash Lungsequal air entry, CTA Abdomenbowel sounds present, normoactive, abdomen soft/nontender/nondistended Extremitieswarm, palpable pulses, no edema Labs and images reviewed. Significant for WBC = 12.15 Chest x-ray with no acute process EKG with no acute ischemic change Assessment/plan: 74-year-old male with hypertension, diabetes, hyperlipidemia, amyloidosis presenting with 2 episodes of chest pain. Troponin and EKG unremarkable at this time. Patient is chest pain-free, hemodynamically stable. Patient is moderate risk for major cardiac event secondary to age and comorbid conditions -Observation to medical floor with telemetry -Troponin every 8 hours x2 sets -We will initiate aspirin 81 mg p.o. daily. Patient presently not on any antiplatelet therapy. He has a history of a hemorrhagic stroke in 2013was seen by neurology in follow-up, hemorrhage thought to be most likely secondary to hypertensive bleed. MRI was reviewed at that time with no evidence of amyloid angiopathy. -Continue atorvastatin -Hold oral agents for diabetes and cover with basal/bolus: Patient -Continue Cozaar for blood pressure, presently fairly well controlled -Cardiology consultation appreciated. -Remainder of plan as above Resident Activity Tracking Resident Involvement: Resident Care Provided Care Provided: Adult [facility] Medicine
[2019-09-15] MEDS ORDERED: GLUCOSE 10 TABS/TUBE PO PRN (21:52)
[2019-09-15] MEDS ORDERED: POLYETHYLENE (MIRALAX) 17 GM PACK PO PRN (21:52)
[2019-09-15] MEDS ORDERED: ACETAMINOPHEN 325 MG TAB PO PRN (21:52)
[2019-09-15] MEDS ORDERED: LATANOPROST 0.005% OP SOLN 2.5 ML BTL OPB SCH (21:52)
[2019-09-15] MEDS ORDERED: GLUCAGON FOR INJ 1 MG VIAL SQ PRN (21:52)
[2019-09-15] MEDS ORDERED: DEXTROSE 50% 50 ML SYRINGE IV PRN (21:52)
[2019-09-15] MEDS ORDERED: GLUCOSE 40% GEL 15 GM TUBE PO PRN (21:52)
[2019-09-15] MEDS ORDERED: LOSARTAN POTASSIUM 25 MG TAB PO SCH (21:52)
[2019-09-15] MEDS ORDERED: ATORVASTATIN 40 MG TAB PO SCH (21:52)
[2019-09-15] MEDS ORDERED: CARBOHYDRATES FOR HYPOGLYCEMIA PO PRN (21:52)
[2019-09-15] MEDS: ALPHAGAN~ORDER AWAITING ACTION SCH ×2 (22:47→23:10)
[2019-09-15] MEDS: INSULIN ASPART 100 UNITS/ML 3 ML PEN SC SCH (22:47)
--- NOTE | 2019-09-16 00:03 | Billing Data ---
Coding Level of Care Code 77461 Initial Inpt Care Lvl 3
[2019-09-16 02:05] LABS: Basophils # (auto) 0.01 K/uL (0-0.2); Basophils % (auto) 0.1 %; Eosinophils # (auto) 0.11 K/uL (0-0.5); Eosinophils % (auto) 1.2 %; Hemoglobin 12.7 g/dL (14.0-18.0); Immature Granulocytes # (auto) 0.02 K/uL (0.00-0.02); Immature Granulocytes % (auto) 0.2 %; Lymphocytes # (auto) 3.43 K/uL (1.2-3.4); Mean Corpuscular Hgb Conc 33.4 g/dL (32-36); Mean Corpuscular Volume 89.6 fL (80-100); Mean Platelet Volume 9.3 fL (7.4-10.4); Monocytes # (auto) 0.79 K/uL (0.11-0.59); Monocytes % (auto) 8.5 %; Neutrophils # (auto) 4.92 K/uL (1.4-6.5); Platelet Count 259 K/uL (130-400); RDW Coefficient of Variation 13.7 % (11.5-14.5); RDW Standard Deviation 45.2 fL (36.4-46.3); Red Blood Count 4.24 M/uL (4.7-6.1); White Blood Count 9.28 K/uL (4.8-10.8)
[2019-09-16 02:17] LABS: Blood Urea Nitrogen 18 mg/dl (7-18); Calcium 8.7 mg/dl (8.5-10.1); Carbon Dioxide 27 mmol/L (21-32); Chloride 111 mmol/L (98-107); Creatinine Clr Calc Pharmacy 71.1 ml/min; Est GFR (African American) 82.9; Est GFR (Non-African American) 71.6; Glucose 117 mg/dl (70-99); Potassium 3.7 mmol/L (3.5-5.1); Sodium 141 mmol/L (136-145)
[2019-09-16 02:22] LABS: Troponin I < 0.015 ng/ml (0-0.045)
[2019-09-16 06:08] LABS: Estimated Average Glucose 146 mg/dl; Hemoglobin A1C 6.7 % (4.5-5.6)
[2019-09-16] MEDS: ALPHAGAN~ORDER AWAITING ACTION SCH (07:07)
[2019-09-16] MEDS: INSULIN ASPART 100 UNITS/ML 3 ML PEN SC SCH ×2 (08:25→12:12)
[2019-09-16] MEDS: ASPIRIN 81 MG ECTAB PO SCH ×2 (08:26→08:35)
[2019-09-16] MEDS ORDERED: OMEGA-3 (PURIFIED FISH OIL) 1 GM CAP PO SCH (09:00)
[2019-09-16] MEDS ORDERED: FINASTERIDE 5 MG TAB PO SCH (09:00)
[2019-09-16] MEDS ORDERED: CHOLECALCIFEROL 1,000 UNITS TAB PO SCH (09:00)
--- NOTE | 2019-09-16 09:50 | Cardiology Consultation ---
Date of Consultation September 16, 2019 Assessment & Plan (1) Chest tightness: Mr. Godinez is a 74-year-old male with a history of Type 2 DM, Hypertension, Dyslipidemia, Hemorrhagic Right Occipital CVA, Obesity, BPH, and Colonic Polyps who was admitted to [facility] yesterday because Chest Tightness and Multiple Cardiac Risk Factors. Patient awoke yesterday morning and noticed an Anterior Chest Tightness with associated Diaphoresis/ Clamminess which lasted approximately 15 to 20 minutes. He denies any radiation of this chest tightness and he denies any associated nausea, vomiting, or dyspnea. Chest Tightness resolved after he got out of his bed and started moving around. Symptoms resolved completely but then recurred at 1600 and only lasted 15 to 30 seconds -- prompting him to come to the ER. EKG's thus far show no acute changes and his Troponin I levels are < 0.015 ng/ml x 2. Patient is currently being seen in [facility] and he is completely asymptomatic. Most likely non-cardiac chest pain with negative Troponin I x 2 -- but with his risk factors would recommend further ischemic evaluation with a Lexiscan Cardiolite. Continue the following for the time bein. Atorvastatin 80 mg daily. 2. Losartan 25 mg every day. 3. Aspirin 81 mg daily -- if negative Lexiscan Cardiolite would stop this medication due to prior hemorrhagic CVA. 4. Fish Oil capsules b.i.d.. Present on Admission?: Yes (2) Hypertension: BP elevated yesterday, but significantly better today. -- Continue Losartan 25 mg daily. Present on Admission?: Yes (3) Type 2 diabetes mellitus: -- Continue Metformin 1000 mg b.i.d.. -- Continue walking program. -- [place] to [place] [facility] [place]. 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 Supervising Physician Co-Signing Physician Notes Elia Velasquez MD History of Present Illness Reason for Consultation: -- Chest Tightness. -- Multiple Cardiac Risk Factors. Requesting Physician: Jude Bautista Attending Physician: Elia Velasquez MD History of Present Illness Mr. Godinez is a 74-year-old male with a history of Type 2 DM, Hypertension, Dyslipidemia, Hemorrhagic Right Occipital CVA, Obesity, BPH, and Colonic Polyps who was admitted to [facility] yesterday because Chest Tightness and Multiple Cardiac Risk Factors. Patient awoke yesterday morning and noticed an Anterior Chest Tightness with associated Diaphoresis/ Clamminess which lasted approximately 15 to 20 minutes. He denies any radiation of this chest tightness and he denies any associated nausea, vomiting, or dyspnea. Chest Tightness resolved after he got out of his bed and started moving around. Symptoms resolved completely but then recurred at 1600 and only lasted 15 to 30 seconds -- prompting him to come to the ER. EKG's thus far show no acute changes and his Troponin I levels are < 0.015 ng/ml x 2. Patient is currently being seen in [facility]- and he feels well and is completely asymptomatic. He denies any chest pain, heaviness, tightness, pressure, or discomfort. He denies any shortness of breath, unusual dyspnea on exertion, or any recent changes in his exertional tolerance. He denies any history of orthopnea, pnd, palpitations, syncope, or near syncope. He can not recall when his last stress test was performed or where it was done -- but apparently no significant findings. Patient is a non-smoker and typically walks on a treadmill every day for 15 minutes at a 2 mph pace. He and his relocated here from [place], [place] to be closer to family. 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 Allergies Allergy/AdvReac Type Severity Reaction Status Date / Time No Known Allergies Allergy Verified 09/15/19 18:27 Home Medications Home Medications Medication Instructions Recorded Confirmed Type brimonidine [Alphagan P] 1 drp OPB BID 07/26/18 09/15/19 History cholecalciferol (vitamin D3) 2,000 unit PO QAM 07/26/18 09/15/19 History [Vitamin D3] latanoprost [Xalatan] 1 drp OPB HS 07/26/18 09/15/19 History losartan [Cozaar] 25 mg PO HS 07/26/18 09/15/19 History metformin [Glucophage] 1,000 mg PO BID 07/26/18 09/15/19 History omega-3 fatty acids-fish oil [Fish 1 cap PO BID 07/26/18 09/15/19 History Oil] atorvastatin 80 mg tablet 80 mg PO HS #90 tab 06/17/19 09/15/19 Rx finasteride [Proscar] 5 mg PO QAM 09/15/19 09/15/19 History aspirin [Ecotrin Low Strength] 81 mg PO QAM 1 Days #1 tab 09/16/19 Rx Patient History Medical History Amyloidosis Angina pectoris, unspecified Hemorrhagic stroke Hypertension No significant past surgical history Type 2 diabetes mellitus Family History Brother Myocardial infarction Prostate cancer Social History Preferred Language: Vietnamese Communication Ability: Effective Visual Impairment: Diminished Hearing Ability: Normal 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 Beliefs That Will Affect Care: None marital status: Current Living Situation: Spouse and Family current occupational status: retired Other Information That Helps Us Care for You: No Feels Safe at Home: Yes Safety Concerns: Feels Safe At This Time Smoking Status: Former smoker Smoking End Date: 1970 ; Hx Alcohol Use: Yes Alcohol Intake Frequency: Rarely Hx Substance Use: No Childhood Exposure to Second-Hand Smoke: No Dental Care, Regularly: Yes Physical Activity Frequency: 5-6 Times per Week Seatbelt Use: always Sunscreen Use: Yes Physical Exam Physical Exam: GENERAL: Patient in no acute distress. HEENT: Head is atraumatic, normocephalic. EOM's intact. Facies symmetric. No perioral cyanosis. NECK: No JVD. JVP is at the level of the clavicle sitting upright. Carotid upstrokes are + 2 bilaterally. No bruits are noted. CHEST/LUNGS: Clear to auscultation throughout all lung mac. No wheezes, rales, or crackles. CVS: S1 and S2 are regular without murmurs, gallops, or rubs. PMI is nondisplaced. No lifts, heaves, or thrills. No abdominal aortic or renal bruits. ABDOMINAL EXAM: Bowel sounds are present. No masses, organomegaly, or tenderness. EXTREMITIES: No clubbing or cyanosis. No edema. Intact posterior tibial and radial pulses bilaterally. NEUROLOGIC EXAM: Patient is awake, alert, and oriented. Pleasant and cooperative. Answers questions appropriately. Speech is clear. Normal movement in all 4 extremities. Gait pattern was not assessed. EKG 09/15/2019: -- NSR with T-wave inversion in lead aVL only. -- No change compared to December 2018 tracing. Results & Data Vital Signs (Past 12 Hours) Vital Signs Temp Pulse Pulse Resp BP Pulse Ox 09/16/19 07:00 36.7 C 64 20 129/69 92 09/16/19 03:56 36.7 C 56 L 19 131/84 97 09/15/19 23:15 70 09/15/19 22:35 68 Laboratory Results Laboratory Results - last 24 hr 09/15/19 09/15/19 09/15/19 17:49 17:49 22:19 WBC 12.15 H RBC 4.58 L Hgb 14.0 Hct 40.7 L MCV 88.9 MCH 30.6 MCHC 34.4 RDW Std Deviation 44.6 RDW Coeff of Marky 13.7 Plt Count 296 MPV 8.9 Immature Gran % (Auto) 0.2 Neut % (Auto) 50.8 Lymph % (Auto) 39.5 Bradford % (Auto) 8.5 Eos % (Auto) 0.8 Baso % (Auto) 0.2 Immature Gran # (Auto) 0.02 Neut # (Auto) 6.18 Lymph # (Auto) 4.80 H Bradford # (Auto) 1.03 H Eos # (Auto) 0.10 Baso # (Auto) 0.02 Sodium 141 Potassium 3.7 Chloride 110 H Carbon Dioxide 25 Anion Gap 6.0 BUN 19 H Creatinine 1.07 Est Cr Clr Drug Dosing 67.8 Est GFR ( Amer) 78.3 Est GFR (Non-Af Amer) 67.5 BUN/Creatinine Ratio 17.5 Glucose 86 POC Glucose 174 H Estimat Average Glucose Hemoglobin A1c Calcium 9.2 Phosphorus 3.5 Magnesium 1.9 Total Bilirubin 0.4 AST 20 ALT 38 Alkaline Phosphatase 73 Troponin I < 0.015 Total Protein 7.5 Albumin 3.9 Globulin 3.6 Albumin/Globulin Ratio 1.1 Lipase 281 09/16/19 09/16/19 09/16/19 01:45 01:45 01:45 WBC 9.28 RBC 4.24 L Hgb 12.7 L Hct 38.0 L MCV 89.6 MCH 30.0 MCHC 33.4 RDW Std Deviation 45.2 RDW Coeff of Marky 13.7 Plt Count 259 MPV 9.3 Immature Gran % (Auto) 0.2 Neut % (Auto) 53.0 Lymph % (Auto) 37.0 Bradford % (Auto) 8.5 Eos % (Auto) 1.2 Baso % (Auto) 0.1 Immature Gran # (Auto) 0.02 Neut # (Auto) 4.92 Lymph # (Auto) 3.43 H Bradford # (Auto) 0.79 H Eos # (Auto) 0.11 Baso # (Auto) 0.01 Sodium 141 Potassium 3.7 Chloride 111 H Carbon Dioxide 27 Anion Gap 3.0 BUN 18 Creatinine 1.02 Est Cr Clr Drug Dosing 71.1 Est GFR ( Amer) 82.9 Est GFR (Non-Af Amer) 71.6 BUN/Creatinine Ratio 18.0 Glucose 117 H POC Glucose Estimat Average Glucose 146 Hemoglobin A1c 6.7 H Calcium 8.7 Phosphorus Magnesium Total Bilirubin AST ALT Alkaline Phosphatase Troponin I < 0.015 Total Protein Albumin Globulin Albumin/Globulin Ratio Lipase 09/16/19 07:32 WBC RBC Hgb Hct MCV MCH MCHC RDW Std Deviation RDW Coeff of Marky Plt Count MPV Immature Gran % (Auto) Neut % (Auto) Lymph % (Auto) Bradford % (Auto) Eos % (Auto) Baso % (Auto) Immature Gran # (Auto) Neut # (Auto) Lymph # (Auto) Bradford # (Auto) Eos # (Auto) Baso # (Auto) Sodium Potassium Chloride Carbon Dioxide Anion Gap BUN Creatinine Est Cr Clr Drug Dosing Est GFR ( Amer) Est GFR (Non-Af Amer) BUN/Creatinine Ratio Glucose POC Glucose 129 H Estimat Average Glucose Hemoglobin A1c Calcium Phosphorus Magnesium Total Bilirubin AST ALT Alkaline Phosphatase Troponin I Total Protein Albumin Globulin Albumin/Globulin Ratio Lipase Medications Administered Active Medications Generic Name Dose Route Start Last Admin Trade Name Freq PRN Reason Stop Dose Admin Acetaminophen 650 mg 09/15/19 21:52 Tylenol PO 10/15/19 21:51 Q4H PRN pain/fever Aspirin 81 mg 09/16/19 09:00 09/16/19 08:35 Ecotrin Ectab PO 10/16/19 08:59 Not Given QAM JAMMIE Atorvastatin Calcium 80 mg 09/15/19 21:52 09/15/19 22:47 Lipitor PO 10/15/19 21:51 80 mg HS JAMMIE Administration Dextrose 25 - 50 ml 09/15/19 21:52 Dextrose 50% IV 12/20/19 21:51 UD PRN Hypoglycemia Protocol Protocol Finasteride 5 mg 09/16/19 09:00 09/16/19 08:26 Proscar PO 10/16/19 08:59 5 mg QAM JAMMIE Administration Fish Oil 1 gm 09/16/19 09:00 09/16/19 08:26 [place]-3 (Purified Fish Oil) PO 10/16/19 08:59 1 gm BID JAMMIE Administration Glucagon 1 mg 09/15/19 21:52 Glucagen SQ 10/15/19 21:51 UD PRN Hypoglycemia Protocol Protocol Glucose 4 - 8 tabs 09/15/19 21:52 Dex4 Glucose PO 10/15/19 21:51 UD PRN Hypoglycemia Protocol Protocol Glucose 15 - 30 gm 09/15/19 21:52 Glucose 40% PO 10/15/19 21:51 UD PRN Hypoglycemia Protocol Protocol Insulin Aspart 0 units 09/15/19 21:52 09/16/19 08:25 Novolog Flexpen SC 10/15/19 21:51 2 units ACHS JAMMIE Administration Latanoprost 1 drops 09/15/19 21:52 09/15/19 22:46 Xalatan Oph OPB 10/15/19 21:51 1 drops HS JAMMIE Administration Losartan Potassium 25 mg 09/15/19 21:52 09/15/19 22:47 Cozaar PO 10/15/19 21:51 25 mg HS JAMMIE Administration Miscellaneous 1 ea 09/15/19 22:15 09/16/19 07:07 Order Awaiting Action N/A 10/15/19 22:14 Not Given QS JAMMIE Miscellaneous 15 - 30 gm 09/15/19 21:52 Carbohydrates For Hypoglycemia PO 10/15/19 21:51 UD PRN Hypoglycemia Protocol Polyethylene Glycol 17 gm 09/15/19 21:52 Miralax Powder Packet PO 10/15/19 21:51 DAILY PRN Constipation Vitamin D 2,000 units 09/16/19 09:00 09/16/19 08:26 Vitamin D3 PO 10/16/19 08:59 2,000 units QAM JAMMIE Administration PG Care Time/CCT Total # of Minutes Spent Total Time Spent with Patient: Total time spent is greater than 50% in coordination of care (as documented) at patient's floor/unit and/or counseling patient:
--- NOTE | 2019-09-16 10:17 | Discharge Summary ---
Date of Service September 16, 2019 Admission HPI Per Admitting Provider Tay is a 74-year-old male with a past medical history of amyloidosis, hemorrhagic stroke in 2014 with residual left hemianopsia, hypertension, hyperlipidemia, type 2 diabetes mellitus, and angina who presents with 2 episodes of right-sided chest pain. Tay reports that he awoke this morning and noticed he had 1/10 chest pain in his right chest which did not cross the sternum/midline, and did not travel into either shoulder or his jaw. He notes that the pain did not wake him up, he noticed the pain after he awoke. He felt sweaty, clammy, and had one chill but after getting up and moving all his symptoms resolved within 15 to 30 minutes. He did not experience any shortness of breath, lightheadedness, or dizziness. At 4 PM the day of admission he had a second similar episode with 01/10 chest tightness which felt like "a muscle ache "in his right chest when he was getting up from watching TV. He did not have any sweats, chills, lightheadedness, dizziness, or shortness of breath with this episode. It lasted for about 10 to 15 seconds and then passed. He was concerned given his history of stroke and a family history of heart disease, so he presented to the ED for evaluation. He has not had any change in his vision, no general weakness, and no focal weakness. Admission Exam Per Admitting Provider General: A&Ox3. NAD. Cooperative. Thought process linear, goal-directed. Speech fluent. HEENT: Atraumatic, normocephalic. Normal external ear anatomy. Normal external nasal anatomy. No scleral icterus. Extraocular movements intact without nystagmus, loses tracking on left gaze. Pupils equal and reactive to light and accommodation. Left-sided hemianopsia with approximately 45% loss of visual arc to confrontation. No nasolabial flattening or hypertonicity. No facial asymmetry. Facial strength and sensation intact in all distributions. Mucous membranes moist. Posterior oropharynx without erythema, exudate. Uvula midline. No cervical anterior/posterior adenopathy, no clavicular adenopathy. Neck supple. Pulm: CTAB A&P. -wheezes, -rales, -rhonchi. Symmetrical chest rise. No increase work of breathing. No respiratory distress. Cardiac: RRR, i/vi systolic murmur, -rg. Radial pulses intact and symmetrical. PT pulses intact and symmetrical Abdominal: Nontender, nondistended, soft. BS present. Extremity: Sensation intact in hallux bilaterally and distal fingertips bilaterally without deficit to soft touch. Finger flexion/extension, interosseous, wrist flexion/extension, elbow flexion/extension, shoulder internal rotation/external rotation/flexion/extension, hip flexion, knee flexion/extension, ankle plantarflexion/dorsiflexion 5/5 without asymmetry. Principal Diagnosis Chest Pain Discharge Exam General: Resting comfortably HEENT: NC/AT; PERRLA with EOMI; [place] conjunctiva, MMM. No erythema of posterior pharynx Neck: Supple and nontender Cardiac: RRR Lungs: CTA bilaterally Abdomen: Bowel normoactive X 4; Nontender to palpation Extremities: Warm. No edema present Neuro: No focal weakness Skin: No rash Discharge Data Allergies Allergy/AdvReac Type Severity Reaction Status Date / Time No Known Allergies Allergy Verified 09/15/19 18:27 Consultations 09/15/19 19:13 ED Decision to Admit Stat 09/15/19 21:52 Consult Cardiology Routine Ordered Studies CXR 09/15 Hospital Course (1) Angina pectoris, unspecified: Multiple cardiac risk factors present on admission. EKG was negative; Trop neg x 3. Cardiology consulted, dobumatine stress test was negative. Atorvastatin 80 mg daily. Pt. refused ASA due to h/o hemorrhagic stroke. (2) Amyloidosis: Monitored as outpatient. (3) Hypertension: Continued home Losartan as prescribed (4) Type 2 diabetes mellitus: A1C is 6.7. Held home metformin. SSI coverage as inpatient. (5) Hemorrhagic stroke: H/o stroke in 2013 with residual left hemianopsia. Continued statin; also added ASA during this admission (pt. refused) (6) BPH (benign prostatic hyperplasia): Continued Finasteride as prescribed. (7) Glaucoma: Continued home eye drops -- will need to bring from home as med is non-formulary. (8) Basal cell carcinoma: H/o, monitored as outpatient. (9) DVT prophylaxis: SCDs; held pharmacologic ppx due to h/o hemorrhagic CVA. Discharged to home on 09/16/19. Total Time Total Time Spent Total Time Spent (In Minutes): >30 minutes Total Time Includes: Examination of the Patient, Discharge Planning, Medication Reconciliation, Communication With Other Providers and Other Discharge Plan Discharge Items Patient Disposition: Home - Self-Care Reason For Visit: CHEST PAIN,DIAPHORESIS Discharge Diagnosis: Chest Pain Goals: You have been hospitalized for an acute medical problem. During your stay at [facility], we have made an effort to correct the problem that brought you to the hospital while keeping you as comfortable as possible. Medications were used to bring your condition under control and your discharge instructions will include directions for any medications you should take after leaving the hospital. Please make sure you see your Primary Care Provider as part of your follow up plan. Activity: As commented below Exercise/Sports: Wait until after follow-up appointment Non-emergency contact: Primary Care Provider Call non-emergency contact if: you have any medication questions, your symptoms worsen, your pain is not controlled, your pain is worsening, your pain is unusual for you, your pain is concerning for you and you have a fever Follow-up/Referrals: Caleb Moss DO [Primary Care Provider] - Diet: Carb Consistent or DM2 and Heart Healthy Addtl Attending Provider Instructions: 1. Chest Pain * Cardiac work up was negative during this admission. * Please continue Atorvastatin as prescribed. * Please follow up with PCP in 1-2 weeks to discuss this hospital admission. Pending Studies at Discharge: No Stand-Alone Forms: My [facility] Medications and DC Order Prescriptions: Continued atorvastatin [Lipitor] 80 mg tablet 80 mg PO HS Qty: 90 RF: 1 finasteride [Proscar] 5 mg tablet 5 mg PO QAM RF: 0 latanoprost [Xalatan] 0.005 % drops 1 drp OPB HS RF: 0 metformin [Glucophage] 1,000 mg tablet 1,000 mg PO BID RF: 0 losartan [Cozaar] 25 mg tablet 25 mg PO HS RF: 0 Alphagan P 0.1 % drops 1 drp OPB BID RF: 0 omega-3 fatty acids-fish oil [Fish Oil] 360-1,200 mg Capsule 1 cap PO BID RF: 0 cholecalciferol (vitamin D3) [Vitamin D3] 2,000 unit Tablet 2,000 unit PO QAM RF: 0 Discharge Orders: Discharge Order (Routine); Ordered 09/16/19 Ordered By: Namrata Rg Admission Data Admit Date/Time: 09/15/19 20:28 Attending Provider: Jude Bautista Admit Provider: Moo Mo Primary Care Provider: Caleb Moss Other Providers: Chinyere Camp Charles C. Other Interventions: Discharge Summary Assessment (RN) Last Done: 09/16/19 16:45 DC Date/Time DO NOT enter until pt leaves facility: 09/16/19 17:02 Supervising Physician Co-Signing Physician Notes During my face to face encounter, I obtained a history and brief exam on the patient. I discussed discharge planning as he was to be discharged if cardiac stress testing was negative, which was the case. This decreases the risk stratification for the patient for a cardiac event. Agree with continuing with atorvastatin. Patient refused ASA due to hemorrahgic stroke history
[2019-09-16] MEDS ORDERED: ATROPINE SULFATE 0.1 MG/ML 10ML SYR IV ONE (13:14)
[2019-09-16] MEDS ORDERED: METOPROLOL TARTRATE 1 MG/ML VIAL IV ONE (13:14)
[2019-09-16] MEDS ORDERED: DOBUTamine HCL 12.5 MG/ML 20 ML VIAL IV ONE (13:14)
== END 2019-09-16 17:02 | disposition home or self-care (01) | DRG 311 ==
LOC: ED 17:02 → 2W 20:28 → SUATTDRO 20:28 → 2W 21:17

== ENCOUNTER 2024-01-05 23:46 | Observation (INO) ==
[2024-01-06] MEDS: ASPIRIN CHEW 324 MG PO STA (00:46)
[2024-01-06 01:22] LABS: Basophils # (auto) 0.04 K/uL (0.00-0.20); Basophils % (auto) 0.4 %; Eosinophils # (auto) 0.16 K/uL (0.00-0.50); Eosinophils % (auto) 1.6 %; Hematocrit (blood only) 40.1 % (42.0-52.0); Hemoglobin 12.8 g/dl (14.0-18.0); Immature Granulocytes # (auto) 0.04 K/uL (0.01-0.20); Immature Granulocytes % (auto) 0.4 %; Lymphocytes # (auto) 2.81 K/uL (1.20-3.40); Lymphocytes % (auto) 28.3 %; Mean Corpuscular Hemoglobin 28.9 pg (25.0-34.0); Mean Corpuscular Hgb Conc 31.9 g/dL (32.0-36.0); Mean Corpuscular Volume 90.5 fL (80.0-100.0); Mean Platelet Volume 9.1 fL (9.4-12.4); Neutrophils # (auto) 6.09 K/uL (1.40-6.50); Neutrophils % (auto) 61.3 %; Platelet Count 329 K/uL (130-400); RDW Coefficient of Variation 14.1 % (11.5-14.5); RDW Standard Deviation 47.3 fL (36.4-46.3); Red Blood Count 4.43 M/uL (4.70-6.10); White Blood Count 9.94 K/ul (4.8-10.8)
--- NOTE | 2024-01-06 01:22 | Emergency Department Note ---
Impression & Plan Chest pain, CAD (coronary artery disease) ED Provider Note NAME: PORTIA BENTON Sr AGE: 78 SEX: M : 1945 ARRIVES VIA: Walk-In INFORMANT: Patient ED PROVIDER(S): Taco Barba DO CHIEF COMPLAINT: chest pain HPI: Patient is a 78-year-old male with a past medical history of BPH, memory deficit, diabetes, NSTEMI, CAD, paroxysmal A-fib, amyloidosis, hypertension who presents to the ER for chest pain. This started around 10 PM tonight. Lasted for about 20 minutes and was described as a pressure. It resolved and then reoccurred later. He does take Plavix. He notes that these symptoms felt like his previous bout of chest pain when he needed a stent. Currently has no pain. He did take all of his medications today. No arm or jaw pain. No shortness of breath. He denies all complaints at this time. No dysuria urgency or frequency. Additional history was obtained from daughter and who are present at bedside who confirmed that this started around 10:00. ADDITIONAL HISTORY OBTAINED: Per HPI Chronic Medical/Social Conditions Affecting Care: Per HPI PAST MEDICAL HISTORY:See Below PAST SURGICAL HISTORY:See Below FAMILY HISTORY:See Below SOCIAL HISTORY:See Below HOME MEDICATIONS:See Below ALLERGIES:See Below VITALS:See Below PHYSICAL EXAMINATION: GENERAL: Sitting up in bed, alert, well appearing, well nourished, no distress, non-toxic EYE EXAM: normal conjunctiva. OROPHARYNX: mucous membranes are moist NECK: supple, no nuchal rigidity, no adenopathy, non-tender LUNGS: Clear to auscultation. Normal chest wall mechanics HEART: no murmurs, S1 normal and S2 normal ABDOMEN: abdomen soft, non-tender, normo-active bowel sounds, no masses, no rebound or guarding. UPPER EXTREMITIES: upper extremities are grossly normal. LOWER EXTREMITIES: No pitting edema. Calves are equal bilaterally NEURO EXAM: Normal sensorium, cranial nerves II-XII grossly intact, normal speech, no gross weakness of arms, no gross weakness of legs. MEDICAL DECISION MAKING: Patient is a 78-year-old male with a past medical history of dyslipidemia, obesity, NSTEMI, CAD, paroxysmal A-fib, amyloidosis, hypertension and diabetes who presents the ER for chest pain. He is completely pain-free at this time. Labs show no significant leukocytosis or anemia. BMP while with LFTs bilirubin was unremarkable. Lipase was marginally elevated at 130. Previous lipase was elevated at 100. He has no belly pain or nausea or vomiting. EKG was nondiagnostic. Chest x-ray was clean. He was given aspirin. He was updated bedside discussed with the case with the hospitalist for further evaluation management treatment. Consults/Care Managements Discussions: Per [facility] Triage Nursing notes reviewed. Limited review of prior medical records performed Vital Signs: reviewed and remarkable for no significant abnormalities Differential diagnosis: Cardiac ischemia, aortic dissection, pulmonary embolism, pneumothorax, pneumonia, pericarditis, myocarditis, esophageal rupture, GERD, cholecystitis, pancreatitis, musculoskeletal, as well as other pathologies. ER treatment provided: See below Diagnostics interpreted by me include EKG and cardiac monitoring as listed below: -Cardiac Monitoring: An order was placed for continuous cardiac monitoring. The monitor shows a rate of 70 with sinus rhythm. -ECG: Sinus rhythm rate 72 Normal axis No PVCs QTc 411 -Laboratory studies:Interpreted by me as stated above in MDM and shown below. Imaging studies: Xrays: As interpreted by me: Portable AP upright 1 view of the chest shows no focal infiltrate CTs show: none Procedures:none Critical Care: None Past Med/Surg History Medical History Myocardial Infarction 02/2023 Basal cell carcinoma of left ear Colon polyps Basal cell carcinoma Type 2 diabetes mellitus Hypertension Angina pectoris, unspecified Amyloidosis Hemorrhagic stroke (2013) Surgical History History of heart artery stent 03/05/2023 History of cardiac cath History of tonsillectomy Family History Brother Myocardial infarction Prostate cancer Father Alzheimer disease Mother Cancer Denies family history of Ovarian cancer Breast cancer Colorectal cancer Social History Smoking Status: Former smoker Tobacco Type: Cigarettes Age Started Using Tobacco: 12; Age Quit Using Tobacco: 27; packs per day: 0.5; Cigarettes Per Day: 10; Second Hand Exposure: No; Do You Dip or Chew Tobacco: No; Hx Alcohol Use: Yes Alcohol type: beer Alcohol Intake Frequency: Monthly or Less Hx Substance Use: No Preferred Language: Frisian Communication Ability: Effective Visual Impairment: Limited Hearing Ability: Normal 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 Beliefs That Will Affect Care: None marital status: Current Living Situation: Spouse and Family Current Living Situation Comment: Grandparent Suite attached to daughters house current occupational status: retired current occupation: Retired How many Children do You have: 5 Feels Safe at Home: Yes Childhood Exposure to Second-Hand Smoke: No Diet: regular caffeine: Yes during the past year weight has: remained stable Dental Care, Regularly: Yes Physical Activity Frequency: Daily Seatbelt Use: always Sunscreen Use: No Assistive Devices: Glasses Allergies Allergies Allergy/AdvReac Type Severity Reaction Status Date / Time No Known Allergies Allergy Verified 09/04/23 11:21 Home Meds Home Medications Medication Instructions Recorded Confirmed brimonidine 0.1 % eye drops 1 drp OPB BID 07/26/18 01/06/24 (Alphagan P) cholecalciferol (vitamin D3) 50 2,000 unit PO QAM 07/26/18 01/06/24 mcg (2,000 unit) tablet (Vitamin D3) latanoprost 0.005 % eye drops 1 drp OPB HS 07/26/18 01/06/24 (Xalatan) ascorbic acid (vitamin C) 500 mg 500 mg PO DAILY 08/03/20 01/06/24 tablet Theralogix Prostate 2.4 mg PO DAILY 01/22/22 01/06/24 netarsudil 0.02 % eye drops 1 drp ophthalmic (eye) QPM 04/19/22 01/06/24 (Rhopressa) metformin 1,000 mg tablet 1,000 mg PO BID 01/06/24 01/06/24 Previous Rx's Medication Instructions Recorded blood sugar diagnostic (BioM[employer]etic The[employer]Touch #100 ea 09/28/21 Verio test strips) losartan 25 mg tablet 25 mg PO DAILY #90 tabs 04/08/23 metoprolol tartrate 25 mg tablet 12.5 mg (1/2 x 25 mg) PO BID #90 04/08/23 tabs magnesium oxide 400 mg (241.3 mg 400 mg PO BID #180 tabs 04/23/23 magnesium) tablet (MgO) finasteride 5 mg tablet 5 mg PO DAILY #90 tabs 05/14/23 apixaban 5 mg tablet (Eliquis) 5 mg PO BID #180 tabs 08/11/23 atorvastatin 40 mg tablet 40 mg PO HS #90 tabs 11/06/23 clopidogrel 75 mg tablet (Plavix) 75 mg PO Q2D #45 tabs 11/21/23 Results & Data (ED) Vital Signs Vital Signs - 24 hr 01/05/24 23:55 01/06/24 00:07 01/06/24 00:30 Temperature 36.5 C Temperature Source Temporal Artery Scan Pulse Rate 80 75 Pulse Rate [Apical] Pulse Rhythm [Apical] Pulse Strength [Apical] Respiratory Rate 20 Respiratory Effort / Characteristics Non-Labored Respiratory Depth Normal Respiratory Pattern Blood Pressure 138/69 Blood Pressure [Left Arm] Blood Pressure Mean 92 Blood Pressure Mean [Left Arm] Blood Pressure Position [Left Arm] Pulse Oximetry 96 Oxygen Delivery Method Room Air Room Air Sepsis Recent Fever Within 48 Hours No Sepsis New/Unexplained Change in Mental Status No Sepsis Action Taken by Nursing No Action Required 01/06/24 00:30 01/06/24 00:30 01/06/24 00:30 Temperature Temperature Source Pulse Rate 73 Pulse Rate [Apical] 71 Pulse Rhythm [Apical] Regular Pulse Strength [Apical] Normal Respiratory Rate 23 20 Respiratory Effort / Characteristics Non-Labored Respiratory Depth Normal Respiratory Pattern Regular Blood Pressure Blood Pressure [Left Arm] 127/71 Blood Pressure Mean Blood Pressure Mean [Left Arm] 89 Blood Pressure Position [Left Arm] Lying Pulse Oximetry 95 94 Oxygen Delivery Method Room Air Room Air Room Air Sepsis Recent Fever Within 48 Hours Sepsis New/Unexplained Change in Mental Status Sepsis Action Taken by Nursing Laboratory Data 01/06/24 00:28 01/06/24 00:28 Lab Results 01/06/24 Range/Units 00:28 WBC 9.94 (4.8-10.8) K/ul RBC 4.43 L (4.70-6.10) M/uL Hgb 12.8 L (14.0-18.0) g/dl Hct 40.1 L (42.0-52.0) % MCV 90.5 (80.0-100.0) fL MCH 28.9 (25.0-34.0) pg MCHC 31.9 L (32.0-36.0) g/dL RDW Std Deviation 47.3 H (36.4-46.3) fL RDW Coeff of Marky 14.1 (11.5-14.5) % Plt Count 329 (130-400) K/uL MPV 9.1 L (9.4-12.4) fL Immature Gran % (Auto) 0.4 % Neut % (Auto) 61.3 % Lymph % (Auto) 28.3 % [place] % (Auto) 8.0 % Eos % (Auto) 1.6 % Baso % (Auto) 0.4 % Neut # (Auto) 6.09 (1.40-6.50) K/uL Lymph # (Auto) 2.81 (1.20-3.40) K/uL [place] # (Auto) 0.80 H (0.11-0.59) K/uL Eos # (Auto) 0.16 (0.00-0.50) K/uL Baso # (Auto) 0.04 (0.00-0.20) K/uL Immature Gran # (Auto) 0.04 (0.01-0.20) K/uL Sodium 137 (136-145) mmol/L Potassium 4.3 (3.5-5.1) mmol/L Chloride 104 (98-107) mmol/L Carbon Dioxide 24 (21-32) mmol/L Anion Gap 9 (3-11) BUN 30 H (6-23) mg/dl Creatinine 1.41 H (0.6-1.4) mg/dl Est Cr Clr Drug Dosing 52.9 ml/min Est GFR ( Amer) 54.5 ml/min Est GFR (Non-Af Amer) 47.0 ml/min BUN/Creatinine Ratio 21.3 H (10-20) Glucose 142 H (70-99(Fasting)) mg/dl Calcium 9.4 (8.6-10.3) mg/dl Total Bilirubin 0.3 (0.2-1.0) mg/dl AST 13 (13-39) U/L ALT 13 (7-52) U/L Alkaline Phosphatase 55 (34-104) U/L Troponin I High Sens 4.0 (0-20) pg/ml Total Protein 6.5 (6.0-8.3) gm/dl Albumin 4.2 (3.4-5.0) gm/dl Globulin 2.3 L (2.5-4.0) gm/dl Albumin/Globulin Ratio 1.8 (0.9-2) Lipase 135 H (11-82) U/L Administered Medications Discontinued Medications Aspirin (Aspirin Chew 324 Mg) 324 mg PO NOW STA Stop: 01/06/24 00:31 Last Admin: 01/06/24 00:46 Dose: 324 mg Documented By: JAMIE Discharge Plan Visit Data Chief Complaint: Cardiac Assessment Stated Complaint: TWINGES IN CHEST BOTH SIDES-STINT IN RT SIDE ED Provider: Taco Barba Discharge Problem: Chest pain, CAD (coronary artery disease) Forms Stand Alone Forms: My [facility] Prescriptions Prescriptions: No Action (DME) OneTouch Verio test strips Strip See Rx Instructions .Route Qty: 100 5RF Rx Instructions: As directed for TID testing metoprolol tartrate 25 mg tablet 12.5 mg PO BID Qty: 90 3RF losartan 25 mg tablet 25 mg PO DAILY Qty: 90 3RF finasteride 5 mg tablet 5 mg PO DAILY Qty: 90 3RF Eliquis 5 mg tablet 5 mg PO BID Qty: 180 3RF atorvastatin 40 mg tablet 40 mg PO HS Qty: 90 3RF clopidogrel [Plavix] 75 mg tablet 75 mg PO Q2D Qty: 45 3RF magnesium oxide [MgO] 400 mg (241.3 mg magnesium) tablet 400 mg PO BID Qty: 180 3RF ascorbic acid (vitamin C) 500 mg tablet 500 mg PO DAILY Rhopressa 0.02 % drops 1 drp ophthalmic (eye) QPM latanoprost [Xalatan] 0.005 % drops 1 drp OPB HS brimonidine [Alphagan P] 0.1 % drops 1 drp OPB BID cholecalciferol (vitamin D3) [Vitamin D3] 2,000 unit Tablet 2,000 unit PO QAM Theralogix Prostate 2.4 mg PO DAILY metformin 1,000 mg tablet 1,000 mg PO BID Rx Instructions: TAKE 1 TABLET BY MOUTH TWICE DAILY Referrals Referrals: Caleb Moss DO [Primary Care Provider] - Discharge Problem: Chest pain Qualifiers: Chest pain type: unspecified Qualified Code(s): R07.9 - Chest pain, unspecified CAD (coronary artery disease) Qualifiers: Coronary Disease-Associated Artery/Lesion type: unspecified vessel or lesion type [place] vs. transplanted heart: unspecified whether [place] or transplanted heart Associated angina: unspecified whether angina present Qualified Code(s): I 25.10 - Atherosclerotic heart disease of [place] coronary artery without angina pectoris
[2024-01-06 01:36] LABS: Albumin Globulin Ratio 1.8 (0.9-2); Albumin Level 4.2 gm/dl (3.4-5.0); BUN Creatinine Ratio 21.3 (10-20); Bilirubin,Total 0.3 mg/dl (0.2-1.0); Calcium 9.4 mg/dl (8.6-10.3); Creatinine Clr Calc Pharmacy 52.9 ml/min; Est GFR (African American) 54.5 ml/min; Globulin 2.3 gm/dl (2.5-4.0); Potassium 4.3 mmol/L (3.5-5.1); Total Protein 6.5 gm/dl (6.0-8.3)
--- NOTE | 2024-01-06 01:59 | History & Physical Report ---
Date of Service January 06, 2024 Assessment & Plan (1) Chest pain: Plan: 78-year-old male with history of CAD status post NSTEMI in February 2023 with placement of drug-eluting stent to the RCA, hypertension, diabetes and paroxysmal atrial fibrillation on Eliquis anticoagulation presenting with intermittent chest discomfort was started this evening around 2200. Troponin x 1 is within normal limits at 4. EKG with no acute ischemic changes. Patient presently chest pain-free. No report of muscle strain or change in activity, no GI complaints. Of note he does have a mild elevation in lipase = 135 Observation to medical telemetry Trend troponins If patient has recurrence of chest pain or elevation in troponin will obtain 2D echo and cardiology consultation Will continue metoprolol 12.5 mg p.o. twice daily, losartan 25 mg p.o. daily, Plavix 75 mg p.o. every other day, atorvastatin 40 mg p.o. nightly (2) CAD (coronary artery disease): Plan: Patient with CAD status post NSTEMI in February 2023 with placement of drug-eluting stent to the RCA. He denies exertional chest pain. Medical conditions otherwise well-controlled. Admit to medical telemetry for chest pain as noted above Continue home medicationsPlavix every other day, metoprolol, losartan, atorvastatin Plavix every other day due to history of hemorrhagic strokepatient follows with cardiology (3) Paroxysmal A-fib: Plan: Presently in normal sinus rhythm. Patient anticoagulated on apixaban 5 mg p.o. twice daily Continue apixaban 5 mg p.o. twice daily Continue metoprolol 12.5 mg p.o. twice daily (4) Hypertension: Plan: Blood pressure mildly elevated 149/69 Continue metoprolol 12.5 mg p.o. twice daily Continue losartan 25 mg p.o. daily Continue to monitor (5) Type 2 diabetes mellitus: Plan: Chronic. Overall well-controlled. Last hemoglobin A1c = 6.8 on 08/30/2023. Blood sugar = 142 currently. Patient is compliant with metformin Hold metformin Insulin sliding scale as needed Goal blood sugar 110 - 140 History of Present Illness Chief Complaint: Chest pain Primary Care Provider: Caleb Moss DO Tay Godinez is a pleasant 78-year-old male presenting with chest pain. Patient with history of diabetes on metformin, hypertension, hemorrhagic stroke, paroxysmal atrial fibrillation on apixaban anticoagulation as well as CAD status post NSTEMI in February 2023 with AIDAN placed to RCA. Patient follows with cardiology, last seen by Dr. Gilman on 08/07/2023. Patient was watching television this evening around 2200 when he developed some "twinges" in his chest, feeling like muscle tightness. These twinges lasted approximately 10 to 15 minutes then resolved on their own and recurred several times throughout the evening. Patient reports that this felt similar to his cardiac event in February 2023. He denies diaphoresis, shortness of breath, nausea or dizziness. Presently without chest pain or discomfort. No additional complaints at this time. Patient denies fever, chills, cough, shortness of breath, abdominal pain, nausea, vomiting. Denies edema or weight gain. Patient denies exertional chest discomfort. In the ER, he is afebrile, hemodynamically stable. ER course: Aspirin 324 mg Allergies Allergy/AdvReac Type Severity Reaction Status Date / Time No Known Allergies Allergy Verified 09/04/23 11:21 Home Medications Medication Instructions Recorded Confirmed Type brimonidine 0.1 % eye drops 1 drp OPB BID 07/26/18 01/06/24 History (Alphagan P) cholecalciferol (vitamin D3) 50 2,000 unit PO QAM 07/26/18 01/06/24 History mcg (2,000 unit) tablet (Vitamin D3) latanoprost 0.005 % eye drops 1 drp OPB HS 07/26/18 01/06/24 History (Xalatan) ascorbic acid (vitamin C) 500 mg 500 mg PO DAILY 08/03/20 01/06/24 History tablet blood sugar diagnostic (OneTouch #100 ea 09/28/21 01/06/24 Rx Verio test strips) Theralogix Prostate 2.4 mg PO DAILY 01/22/22 01/06/24 History netarsudil 0.02 % eye drops 1 drp ophthalmic (eye) QPM 04/19/22 01/06/24 History (Rhopressa) losartan 25 mg tablet 25 mg PO DAILY #90 tabs 04/08/23 01/06/24 Rx metoprolol tartrate 25 mg tablet 12.5 mg (1/2 x 25 mg) PO BID #90 04/08/23 01/06/24 Rx tabs magnesium oxide 400 mg (241.3 mg 400 mg PO BID #180 tabs 04/23/23 01/06/24 Rx magnesium) tablet (MgO) finasteride 5 mg tablet 5 mg PO DAILY #90 tabs 05/14/23 01/06/24 Rx apixaban 5 mg tablet (Eliquis) 5 mg PO BID #180 tabs 08/11/23 01/06/24 Rx atorvastatin 40 mg tablet 40 mg PO HS #90 tabs 11/06/23 01/06/24 Rx clopidogrel 75 mg tablet (Plavix) 75 mg PO Q2D #45 tabs 11/21/23 01/06/24 Rx metformin 1,000 mg tablet 1,000 mg PO BID 01/06/24 01/06/24 History Past Med/Surg History Medical History (Updated 01/06/24 @ 02:17 by Chinyere Camp DO) Myocardial Infarction 02/2023 status post drug-eluting stent to RCA Basal cell carcinoma of left ear Colon polyps Basal cell carcinoma Type 2 diabetes mellitus Hypertension Angina pectoris, unspecified Amyloidosis Hemorrhagic stroke (2013) Surgical History History of heart artery stent 03/05/2023 History of cardiac cath History of tonsillectomy Family History Brother Myocardial infarction Prostate cancer Father Alzheimer disease Mother Cancer Denies family history of Ovarian cancer Breast cancer Colorectal cancer Social History Smoking Status: Former smoker Tobacco Type: Cigarettes Age Started Using Tobacco: 12; Age Quit Using Tobacco: 27; packs per day: 0.5; Cigarettes Per Day: 10; Second Hand Exposure: No; Do You Dip or Chew Tobacco: No; Hx Alcohol Use: Yes Alcohol type: beer Alcohol Intake Frequency: Monthly or Less Hx Substance Use: No Preferred Language: Yakut Communication Ability: Effective Visual Impairment: Limited Hearing Ability: Normal Bar Host/Hostess Required: No Beliefs That Will Affect Care: None marital status: Current Living Situation: Spouse and Family Current Living Situation Comment: Grandparent Suite attached to daughters house current occupational status: retired current occupation: Retired How many Children do You have: 5 Feels Safe at Home: Yes Childhood Exposure to Second-Hand Smoke: No Diet: regular caffeine: Yes during the past year weight has: remained stable Dental Care, Regularly: Yes Physical Activity Frequency: Daily Seatbelt Use: always Sunscreen Use: No Assistive Devices: Glasses Review of Systems Review of Systems: All systems reviewed & are unremarkable except as noted in HPI & below Physical Exam Physical Exam: General: patient resting comfortably, NAD, non-toxic in appearance, AA&O x 4 Skin: warm, dry, intact, no rashes or lesions HEENT: NC/AT, PERRL, EOMI, anicteric sclera, conjunctiva without injection, external ear normal to inspection and nontender, nares patent, moist mucus membranes, dentition intact, no oropharyngeal lesions, neck supple, trachea midline, no LAD, no thyromegaly, no JVD Heart: +S1/S2, regular, no m/r/g Lungs: equal air entry bilaterally, no rales/rhonchi/wheezes Abd: +BS, soft, NT/ND, no masses/organomegaly/ascites Ext: warm, 2+ pulses in UE/LE bilaterally, no clubbing/cyanosis or edema Neuro: nonfocal, patient AA&O x 4, speech intact, no facial droop, moving all extremities on command with equal strength 5/5 Results & Data Results & Data Vital Signs (Past 12 Hours) Vital Signs Temp Pulse Pulse Resp BP BP Pulse Ox 01/06/24 00:30 73 20 94 01/06/24 00:30 71 23 127/71 95 01/06/24 00:30 01/06/24 00:30 01/06/24 00:07 75 01/05/24 23:55 36.5 C 80 20 138/69 96 O2 Del Method 01/06/24 00:30 Room Air 01/06/24 00:30 Room Air 01/06/24 00:30 Room Air 01/06/24 00:30 Room Air 01/06/24 00:07 01/05/24 23:55 Room Air Laboratory Results Laboratory Results WBC 9.94 K/ul (4.8-10.8) 01/06/24 00:28 RBC 4.43 M/uL (4.70-6.10) L 01/06/24 00:28 Hgb 12.8 g/dl (14.0-18.0) L 03/12/24 00:28 Hct 40.1 % (42.0-52.0) L 01/06/24: MCV 90.5 fL (80.0-100.0) 01/06/24: MCH 28.9 pg (25.0-34.0) 01/06/24: MCHC 31.9 g/dL (32.0-36.0) L 01/06/24: RDW Std Deviation 47.3 fL (36.4-46.3) H 01/06/24: RDW Coeff of Marky 14.1 % (11.5-14.5) 01/06/24: Plt Count 329 K/uL (130-400) 01/06/24: MPV 9.1 fL (9.4-12.4) L 01/06/24: Immature Gran % (Auto) 0.4 % 01/06/24: Neut % (Auto) 61.3 % 01/06/24: Lymph % (Auto) 28.3 % 01/06/24: [place] % (Auto) 8.0 % 01/06/24: Eos % (Auto) 1.6 % 01/06/24: Baso % (Auto) 0.4 % 01/06/24: Neut # (Auto) 6.09 K/uL (1.40-6.50) 01/06/24 00: Lymph # (Auto) 2.81 K/uL (1.20-3.40) 01/06/24: [place] # (Auto) 0.80 K/uL (0.11-0.59) H 01/06/24 00: Eos # (Auto) 0.16 K/uL (0.00-0.50) 01/06/24: Baso # (Auto) 0.04 K/uL (0.00-0.20) 01/06/24: Immature Gran # (Auto) 0.04 K/uL (0.01-0.20) 01/06/24 00: Sodium 137 mmol/L (136-145) 01/06/24: Potassium 4.3 mmol/L (3.5-5.1) 01/06/24: Chloride 104 mmol/L (98-107) 01/06/24: Carbon Dioxide 24 mmol/L (21-32) 01/06/24: Anion Gap 9 (3-11) 01/06/24: BUN 30 mg/dl (6-23) H 01/06/24: Creatinine 1.41 mg/dl (0.6-1.4) H 01/06/24: Est Cr Clr Drug Dosing 52.9 ml/min 01/06/24: Est GFR ( Amer) 54.5 ml/min 01/06/24: Est GFR (Non-Af Amer) 47.0 ml/min 01/06/24: BUN/Creatinine Ratio 21.3 (10-20) H 01/06/24: Glucose 142 mg/dl (70-99(Fasting)) H 01/06/24: Calcium 9.4 mg/dl (8.6-10.3) 01/06/24 Total Bilirubin 0.3 mg/dl (0.2-1.0) 01/06/24: AST 13 U/L (13-39) 01/06/24: ALT 13 U/L (7-52) 01/06/24: Alkaline Phosphatase 55 U/L (34-104) 01/06/24: Troponin I High Sens 4.0 pg/ml (0-20) 01/06/24 Total Protein 6.5 gm/dl (6.0-8.3) 01/06/24: Albumin 4.2 gm/dl (3.4-5.0) 01/06/24: Globulin 2.3 gm/dl (2.5-4.0) L 01/06/24: Albumin/Globulin Ratio 1.8 (0.9-2) 01/06/24: Lipase 135 U/L (11-82) H 01/06/24: Diagnostic Findings Chest x-rayper my interpretationstudy with no obvious infiltrate, edema or pneumothorax ECG Additional Comments: EKG per my interpretation shows normal sinus rhythm at 72 bpm, normal axis, MT = 170, QRS = 84, QTc = 411, no acute ischemic changes PG Care Time/CCT Total # of Minutes Spent Total Time Spent with Patient: Total time spent is greater than 50% in coordination of care (as documented) at patient's floor/unit and/or counseling patient: Coding Level of Care Code 69348 INT INP/OBS CARE 2/55MIN Diagnoses Chest pain R07.9 Chest pain type: unspecified CAD (coronary artery disease) I25.10 Associated angina: unspecified whether angina present Coronary Disease-Associated Artery/Lesion type: unspecified vessel or lesion type [place] vs. transplanted heart: unspecified whether 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, without long-term current use of insulin, macular edema presence unspecified E11.3293 Diabetes mellitus halfway insulin use: without halfway use Diabetes mellitus complication status: with ophthalmic complications Diabetes mellitus complication detail: with diabetic retinopathy Diabetic retinopathy severity: with mild nonproliferative retinopathy Diabetes mellitus macular edema: macular edema presence unspecified Laterality: bilateral (1) Chest pain Chest pain type: unspecified Qualified Code(s): R07.9 - Chest pain, unspecified (2) CAD (coronary artery disease) Associated angina: unspecified whether angina present Coronary Disease- Associated Artery/Lesion type: unspecified vessel or lesion type [place] vs. transplanted heart: unspecified whether [place] or transplanted heart Qualified Code(s): I25.10 - Atherosclerotic heart disease of [place] coronary artery without angina pectoris (5) Type 2 diabetes mellitus Diabetes mellitus halfway insulin use: without halfway use Diabetes mellitus complication status: with ophthalmic complications Diabetes mellitus complication detail: with diabetic retinopathy Diabetic retinopathy severity: with mild nonproliferative retinopathy Diabetes mellitus macular edema: macular edema presence unspecified Laterality: bilateral Qualified Code(s): E11.3293 - Type 2 diabetes mellitus with mild nonproliferative diabetic retinopathy without macular edema, bilateral
[2024-01-06] MEDS ORDERED: GLUCAGON FOR INJ 1 MG VIAL SQ PRN (02:42)
[2024-01-06] MEDS ORDERED: GLUCOSE 40% GEL 15 GM TUBE PO PRN (02:42)
[2024-01-06] MEDS ORDERED: GLUCOSE 10 TAB/TUBE PO PRN (02:42)
[2024-01-06] MEDS ORDERED: ONDANSETRON INJ 2 MG/ML 2 ML VIAL IV PRN (02:42)
[2024-01-06] MEDS ORDERED: CARBOHYDRATES FOR HYPOGLYCEMIA PO PRN (02:42)
[2024-01-06] MEDS ORDERED: DEXTROSE 50% 50 ML SYRINGE IV PRN (02:42)
[2024-01-06] MEDS ORDERED: NITROGLYCERIN SL 0.4 MG/TAB TAB SL PRN (02:42)
[2024-01-06] MEDS ORDERED: ACETAMINOPHEN 325 MG TAB PO PRN (02:42)
[2024-01-06 04:16] LABS: Troponin I High Sensitivity 4.2 pg/ml (0-20)
--- NOTE | 2024-01-06 07:28 | XRay Report ---
XR chest 1V portable CLINICAL HISTORY: Chest pain, nonspecific COMPARISON STUDY: Chest radiograph September 05, 2023. FINDINGS: Lung volumes are normal. Lungs are clear. There is no pneumothorax or pleural effusion. Car diomegaly is unchanged. Mediastinal contours are normal. There is no evidence for pulmonary edema. IMPRESSION: No acute cardiopulmonary findings. No change in appearance of the chest. ACT 112: Negative or not required by law. Electronically signed by: James Kim M.D. 01/06/2024 7:26 AM
[2024-01-06] MEDS: FINASTERIDE 5 MG TAB PO SCH (08:14)
[2024-01-06] MEDS: LOSARTAN POTASSIUM 25 MG TAB PO SCH (08:14)
[2024-01-06] MEDS: CLOPIDOGREL BISULFATE 75 MG TAB PO SCH (08:14)
[2024-01-06] MEDS: METOPROLOL TARTRATE 25 MG TAB PO SCH (08:14)
[2024-01-06] MEDS: APIXABAN 5 MG TABLET PO SCH (08:14)
[2024-01-06] MEDS: INSULIN ASPART PER UNIT CHARGE SC SCH (08:14)
--- OUTSIDE RECORDS SUMMARY | 2024-01-06 09:08 | External Medical Summary | Summary of Care ---
Author Name Unknown Organization [facility] Address [address] [place] [address] Phone [phone] Care Team Providers Care Paintless Dent Repair Technician Name Role Phone Moss Caleb Perla DO Primary Care Provider Reason for Visit * Reason Onset Date Comments Immunizations 08/28/2023 Medication Administration 08/28/2023 Flu an d/or Pneumo Inj Encounter Details Date Type Department Care Team (Late st Contact Info) Description 08/28/2023 1:30 PM EDT Nurse Only Pulmonary Medicine, [facility] [address] [facility] [place] [id number] Gw, Nurse Pulmonary [address] [facility] [place] [address] Immunizations; Medication Administration (... Allergies Active Allergy Reactions Criticality Noted Date Comments Lisinopril 10/30/2011 documented as of this encounter (statuses as of 09/12/2023) Medications Medication Sig Dispensed Refills Start Date End Date Status Nutritional Supplements (PROSTATE 2.4) CAPS 0 Active Cholecalciferol (VITAMIN D-3) 1000 UNITS Capsule 0 Active [place]-3 Fatty Acids (FISH OIL) 1000 MG Capsule 0 Active MetFORMIN (GLUCOPHAGE) 1000 MG Tablet 2 times a day. 0 Active finasteride (PROSCAR) 5 MG Tablet 0 01/31/2017 Active Valsartan 80 MG Oral Tablet Take 1 Tablet by mouth in the morning. 0 01/03/2022 Active Magnesium 400 MG Oral Capsule Take 1 Capsule by mouth in the morning. 0 Active Eliquis 5 MG Oral Tablet Take 1 Tablet by mouth in the morning and 1 Tablet in the evening. 0 04/03/2023 Active Clopidogrel Bisulfate 75 MG Oral Tablet (pLAVix) Take 1 Tablet by mouth in the morning. 0 04/03/2023 Active Metoprolol Tartrate 25 MG Oral Tablet (Lopressor) Take 0.5 Tablets by mouth in the morning and 0.5 Tablets in the evening. 0 04/08/2023 Active Atorvastatin Calcium 40 MG Oral Tablet (Lipitor) TAKE 1 TABLET BY MOUTH EVERY DAY NIGHTLY 0 03/06/2023 Active Alphagan P 0.1 % Ophthalmic Solution (briMONidine Tartrate) INSTILL 1 DROP INTO BOTH EYES TWICE A DAY. 5 mL 6 05/22/2023 Active Latanoprost 0.005 % Ophthalmic Solution (Xalatan) Instill 1 Drop into both eyes at bedtime. 2.5 mL 12 05/29/2023 Active Rhopressa 0.02 % Ophthalmic Solution (Netarsudil Dimesylate) Instill 1 Drop into both eyes every night at bedtime. 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, moderate stage 12/29/2018 Chronic angle-closure glaucoma of both eyes, mod erate stage 07/01/2018 Senile nuclear cataract, bilateral 07/01/2018 documented as of this encounter (statuses as of 09/12/2023) Immunizations Name Administration Dates Next Due COVID-19 mRNA, LNP-s, No Pre serve, 2-Dose Series (Pfizer) 01/23/2021,12/25/2020 Pneumococcal Conjugate Vacc, 13 Valent (Prevnar) 09/14/2014 Pneumococcal Polysaccharide PPV23 (Pneumovax) 06/04/2011 Seasonal Influenza, Quadriva lent Hd (Fluzone Hd) 08/28/2023 Seasonal Influenza, Split, I IV3, With Preserve, Inj 08/05/2019,08/11/2012,09/03/2011 Seasonal Influenza, Trivalen t, High Dose, No Preserve, IM 08/09/2015,07/19/2014 Varicella Zoster Vaccine (Adult) 06/16/2012 documented as of this encounter Social History Tobacco Use Types Packs/Day Years Used Date Smoking Tobacco: Former Smokeless Tobacco: Never Alcohol Use Standard Drinks/Week Comments Yes 0 (1 standard drink = 0.6 oz pur e alcohol) rarely Sex and Gender Information Value Date Recorded Sex Assigned at Not on file Gender Identity Not on file Sexual Orientation Not on file Job Start Date Occupation Industry Not on file Not on file Not on file documented as of this encounter Patient Instructions * Patient Instructions* Padmiin Marc LPN - 08/28/2023 1:47 PM EDT ~~PATIENT INSTRUCTIONS FOR TDAP VACCINE~~ Possible side effects of TDAP vaccine, (tetanus shot), are usually mild and can include: 1. Soreness or redness at injection site 2. Low grade fever 3. Body aches You may use a fever / pain reducing medication as needed for these symptoms. LET YOUR DOCTOR KNOW IMMEDIATELY IF YOU HAVE DIFFICULTY BREATHING OR SWALLOWING, EXPERIENCE ITCHINGOF FEET OR HANDS, HAVE SWELLING OF EYES, FACE OR INSIDE OF NOSE. documented in this encounter Progress Notes * Padmini Marc LPN - 08/28/2023 1:45 PM EDT PRE - ADMINISTRATION DOCUMENTATION Are you experiencing any cold symptoms or fever? No Have you had Guillain-Somers Syndrome (an illness that causes paralysis) within the last 6 weeks? No Have you had the flu shot in the past? YES Have you ever had a reaction to the flu shot? No Padmini Marc LPN, 08/28/2023 1:45 PM Immunization Administration Documentation Time Out Procedure Performed: Yes Patient Identified (Ask Name/Date of ): Yes Does the patient have a fever greater than 101 degrees today? No Patient allergic to latex? No VFC Stock: No Immunization(s) verified: Yes, Immunization Name: Flu, VIS Sheet(s) given: Yes Verified Side and Site: Yes Verified Shot(s) with Parent(s)/Patient: Yes documented in this encounter Plan of Treatment Upcoming Encounters Date Type Department Care Team (Late st Contact Info) Description 10/06/2023 9:30 AM EST [facility] [address] [place] [address] Sarah Brown MD [address] [place] [address] 11/27/2023 11:45 AM EST Office Visit Ophthalmology, [facility] [address] [place] [address] Armando Hernandez DO [address] [place] [address] Health Maintenance Due Date Last Done Comments Depression Screening 1957 Hepatitis C Screening 1963 DTaP,Tdap,and Td Vaccines (1 - Tdap) 1964 COVID-19 Vaccine ( - 2022-24 season) 2023 10/01/2022, 01/23/2021, 12/25/2020 Pneumococcal Vaccine: 65+ Years Completed 09/14/2014, 06/04/2011 Zoster Vaccines Completed 06/14/2021, 07/27, 06/16/2012 Influenza Vaccine (FLU shot) Completed 11/2022, 06/30/2020, 08/05/2019, Additional history exists GARDASIL-HPV IMMUNIZATION SERIES Aged Out No longer eligible based on patient's age to complete this topic Hepatitis B Aged Out No longer eligi ble based on patient's age to complete this topic MENINGOCOCCAL (MENACTRA/MENVEO) Aged Out No longer eligible based on patient's age to complete this topic documented as of this encounter Medical Devices Not on filedocumented as of this encounter Visit Diagnoses Diagnosis Need for prophylactic vaccination and inoculation against influenza- Primary Need for mynfokexwg-ejliebq-wnfaoxaar (Tdap) vaccine Need for prophylactic vaccination with combined aokmabfnmd-xgbimcn-fzwzfcfpr (DTP) vaccine documented in this encounter Care Teams Paintless Dent Repair Technician Relationship Specialty Start Date End Date Caleb Moss DO [address] [place] [address] PCP - General Family Medicine 06/03/18 documented as of this encounter
--- OUTSIDE RECORDS SUMMARY | 2024-01-06 09:08 | External Medical Summary | Summary of Care ---
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, unspecified whether nursing home insulin use (HCC)* Allergies Active Allergy Reactions Criticality Noted Date Comments Lisinopril 10/30/2011 documented as of this encounter (statuses as of 11/27/2023) Medications Medication Sig Dispensed Refills Start Date End Date Status Nutritional Supplements (PROSTATE 2.4) CAPS 0 Active Cholecalciferol (VITAMIN D-3) 1000 UNITS Capsule 0 Active [place]-3 Fatty Acids (FISH OIL) 1000 MG Capsule [...] as of this encounter (statuses as of 11/27/2023) Active Problems Problem Noted Date Diagnosed Date 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, moderate stage 12/29/2018 Chronic angle-closure glaucoma of both eyes, mod erate stage 07/01/2018 Senile nuclear cataract, bilateral 07/01/2018 documented as of this encounter (statuses as of 11/27/2023) Immunizations Name Administration Dates Next Due COVID-19 mRNA, LNP-s, No Pre serve, 2-Dose Series (Pulmatrix) 01/23/2021,12/25/2020 Pneumococcal Conjugate Vacc, 13 Valent (Prevnar) [...] Information Value Date Recorded Sex Assigned at Male 11/15/2023 1:52 PM EST Gender Identity Male 11/15/2023 1:52 PM EST Sexual Orientation Choose not to disclose 2023 1:52 PM EST Job Start Date Occupation Industry Not on file Not on file Not on file documented as of this encounter Progress Notes * rAmando Hernandez, - 11/27/2023 11:45 AM EST [facility] [place] HPI: Tay Harperale Sr. is a 78 year old male who presents for DR Base Eye Exam Visual Acuity (Snellen - Linear) Right Left Dist cc 20/60 -2 LPO Dist ph cc 20/40 Tonometry (Tonopen, 12:00 PM) Right Left Pressure 14 27 Pupils Pupils Dark Shape React APD Right PERRL 4 Round Minimal None Left PERRL 5.5 Round Minimal None Visual Roberts (Counting fingers) Right Left Restrictions Total inferior nasal deficiency; Partial outer superior temporal, superior nasal deficiencies Total superior temporal, inferior temporal, superior nasal, inferior nasal deficiencies Extraocular Movement Right Left Full, Ortho Full, Ortho Neuro/Psych Oriented x3: Yes Mood/Affect: Normal Dilation Both eyes: 0.5% Proparacaine @ 11:58 AM Dilation #2 Both eyes: 1.0% Mydriacyl, 2.5% Phenylephrine @ 11:59 AM Dilation Comments Patient cautioned that effects of dilation may last 2-7 hours dependant upon individual reaction. It was discussed that driving while dilated is not recommended. EXTERNAL: The ocular adnexae are unremarkable. SLE: Lids/Lashes: wnl OU Conjunctiva/Sclera: quiet OU Cornea: clear OU Anterior Chamber: deep and quiet OU Iris: normal OU; no NVI OU Lens: 2+NSC OU Dilated fundus exam OD: vitreous: clear optic nerve: 0.95, no edema/pallor/NVD macula: no csme vessels: wnl periphery: trace supervisor customer services, no RT/RD Dilated fundus exam OS: vitreous: clear optic nerve: 0.99, no edema/pallor/NVD macula: no csme vessels: wnl periphery: trace supervisor customer services, no RT/RD OCT Interpretation: OD: inferior CME, central fovea clear, no srfluid - STABLE, prior STABLE, prior improved, prior mildy worse, prior mixed, prior worse 31um, prior improved 21um, priorimproved 30um, prior prior improved 198um, prior worse 92um, prior improved 148um, prior worse 243um, prior improved 128um OS: no CME/SRFluid - STABLE, prior stable A/P: 1. Mild Nonproliferative diabetic retinopathy OU -DM2 -+chronic CME OD - multifactorial DME and h/o RVO -s/p Avastin OD in [place] - last was 03/09 stopped after had stroke -OCT improved despite no tx in past - s/p Eylea OD (08-19-19)--great improvement -VA stable and central fovea dry -monitor OS - stable -recommend HgbA1C <7, BP and lipid control. 2. H/o mild CRVO OD -old records received from Dr. Jonel Erickson and Dr. Christopher Matthews: -h/o mild CRVO OD 12/17/12 and underwent several injections of Avastin OD 3. Advanced CACGlaucoma OU -s/p LPI OU in [place] -recommend ongoing 'g' evals -s/p SLT by Dr. Miranda in [place] -followed by Glaucoma/Jan -Current Drops OU - Xalatan QHS - Brimonidine BID - Rhopressa QHS -followed by Dr. Stauffer 4. 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 is a 78 year old year old male who presents for Mild NPDR OU. Last Office Visit: 08/20/2023 (in office), Visit date not found (telemedicine) Patient currently states no change in vision. Are you diabetic? Yes. Do you check your blood sugars daily? NO. Last Hemoglobin A1C: No results found for: "HGBA1C" Do you drive? no OCT image(s) of both eyes acquired and filed/scanned into chart. documented in this encounter Plan of Treatment Upcoming Encounters Date Type Department Care Team (Late st Contact Info) Description 01/22/2024 11:45 AM EDT Office [facility] [address] [place] [address] Sarah Brown MD [address] [place] [address] [place] [address] 03/04/2024 11:45 AM EDT Office Visit Ophthalmology, [facility] [address] [place] [address] Armando Hernandez DO [address] [place] [address] Health Maintenance Due Date Last Done Comments Depression Screening 1957 Hepatitis C Screening 1963 DTaP,Tdap,and Td Vaccines (1 - Tdap) 1964 Pneumococcal Vaccine: 65+ Years Completed 09/14/2014, 06/04/2011 Zoster Vaccines Completed 06/14/2021, 07/27, 06/16/2012 Influenza Vaccine (FLU shot) Completed 11/2022, 06/30/2020, 08/05/2019, Additional history exists COVID-19 Vaccine Completed 09/04/2023, 03/2022, 01/23/2021, Additional history exists GARDASIL-HPV IMMUNIZATION SERIES Aged [...] as of this encounter Visit Diagnoses Diagnosis 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
--- OUTSIDE RECORDS SUMMARY | 2024-01-06 09:08 | External Medical Summary | Summary of Care ---
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*; Stable central retinal vein occlusion of right eye; Nuclear age-related cataract, both eyes Allergies Active Allergy Reactions Criticality Noted Date Comments Lisinopril 10/30/2011 documented as of this encounter (statuses as of 10/06/2023) Medications Medication Sig Dispensed Refills Start Date End Date Status Nutritional Supplements (PROSTATE 2.4) CAPS 0 Active Cholecalciferol (VITAMIN D-3) 1000 UNITS Capsule 0 Active [place]-3 Fatty Acids (FISH OIL) 1000 MG Capsule [...] as of this encounter (statuses as of 10/06/2023) Active Problems Problem Noted Date Diagnosed Date 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, moderate stage 12/29/2018 Chronic angle-closure glaucoma of both eyes, mod erate stage 07/01/2018 Senile nuclear cataract, bilateral 07/01/2018 documented as of this encounter (statuses as of 10/06/2023) Immunizations Name Administration Dates Next Due COVID-19 mRNA, LNP-s, No Pre serve, 2-Dose Series ([employer]) 01/23/2021,12/25/2020 Pneumococcal Conjugate Vacc, 13 Valent (Prevnar) [...] this encounter Patient Instructions * Patient Instructions* Gabbie Pacheco TECH - 10/06/2023 7:46 AM EST Final eye medication list Purple cap (Brimonidine/Alphagan): use one drop in both eyes 2 times a day Teal cap (Latanoprost/Xalatan): use one drop in both eyes at bedtime White cap (Netarsudil/Rhopressa): use one drop in both eyes at bedtime documented in this encounter Progress Notes * Sarah Brown MD - 10/06/2023 7:44 AM EST HPI/Summary: First seen in 2015, previous patient of Dr. Moseley. Left eye vision worsened between 2159-3578 with some IOPs in the mid-20s. Seen after being lost to follow up in [facility] glaucoma. Here for HVF 24-2 right eye only, IOP check. No changes in vision since last visit. Glaucoma diagnosis: MMG severe OU Other ocular diagnoses Current ocular meds Glaucoma meds to avoid Monocular Cataracts both eyes Mild NPDR both eyes DME right eye CRVO right eye Left homonymous hemianopsia Brimonidine bid OU Rhopressa qhs OU Latanoprost qhs OU Right eye Left eye Ocular surgery LPI (2015) Anti-VEGF injections SLT (03/07/2022) LPI (2015) Max IOP 24 27 Target IOP Low teens comfort Gonioscopy B-C30f 2+ B-C30f 2+ CCT 529 527 Ocular Fhx Past medical history: DM, amyloidosis, hx NSTEMI, afib, HTN Base Eye Exam Visual Acuity (Snellen - Linear) Right Left Dist cc 20/40 -2 Correction: Glasses Tonometry (Applanation, 11:03 AM) Right Left Pressure 13 18 Pupils Shape React APD Right Round Minimal None Left Round Minimal None Visual Roberts (Counting fingers) Right Left Restrictions Total inferior nasal deficiency; Partial outer superior temporal, superior nasal deficiencies Total superior temporal, inferior temporal, superior nasal, inferior nasal deficiencies Extraocular Movement Right Left Full, Ortho Full, Ortho Neuro/Psych Oriented x3: Yes Mood/Affect: Normal Additional Tests Keratometry (Automated) K1 Weston K2 Weston Right 43.50 127 44.00 37 Left Slit Lamp and Fundus Exam External Exam Right Left External Normal Normal Slit Lamp Exam Right Left Lids/Lashes MGD, blepharitis MGD, blepharitis Conjunctiva/Sclera 1+, Injection White and quiet Cornea decreased TBUT decreased TBUT Anterior Chamber Deep and quiet Deep and quiet Iris Round and reactive, PI patent Round and reactive, PI patent Lens 2+ NSC 2+ NSC, 1+ cortical Fundus Exam Right Left Disc Cupping, thin rim, inferior slope, some collateral nasal Cupping, thin rim C/D Ratio 0.9 0.9 Refraction Wearing Rx Sphere Cylinder Weston Right +1.00 +1.00 151 Left +0.75 +1.00 174 Age: 5yrs Type: SVL Manifest Refraction (Auto) Sphere Cylinder Weston Dist VA Right +2.00 +0.50 006 20/50 Left Moore visual field HVF 24-2 - 10/06/2023 OD: good reliability. MD -21.27. PSD 11.85. left hemifield defect. Stable. Assessment & Plan # MMG severe OU Monocular OD IOP in good range and tolerating drops well VFs have been stable Continue current glaucoma medications as below # L homonymous hemianopsia Due to R occipital stroke. Stable. # Cataracts OU May be approaching visual significance OD Would like to monitor as we have to consider risk of CME and need for injections or prolonged steroids post-op Interested in surgery OS to improve with the shadowing in his vision Discussed expectations- will plan to discuss surgery next visit # Mild NPDR OU # Chronic CME OD # Hx RVO OD Stable, monitor Monocular precautions Return for January IOP and dilate both eyes. Cataract eval OS. FERNANDO Carty scribing for and in the presence of Dr. Sarah Miranda MD. 10/06/2023. This note is prepared by FERNANDO Carty acting as a scribe for me. The scribe's documentation has been prepared under my direction and personally reviewed by me in its entirety. I confirm that the note above accurately reflects all work, treatment, procedures and medical decision making performed by me. Sarah Miranda MD Final eye medication list Purple cap (Brimonidine/Alphagan): use one drop in both eyes 2 times a day Teal cap (Latanoprost/Xalatan): use one drop in both eyes at bedtime White cap (Netarsudil/Rhopressa): use one drop in both eyes at bedtime documented in this encounter Nursing Notes * Gabbie Bañuelos TECH - 10/06/2023 9:59 AM EST Moore Visual Field HVF 24-2 right eye completed on Machine 1. Results found in Continuum. Patient had a lot of focusing trouble * Kimberley Ashton LPN - 10/06/2023 9:42 AM EST Tay Harperwilfred Garcia. presents for HVF 24-2 right eye only, IOP check. Last Visit: 05/29/2023 (in office), Visit date not found (telemedicine) He currently states no change in vision. Current Ophthalmic Medications: Latanoprost 0.01% op soln 1 gtt both eyes QPM Vision and IOP by air tonometry if done can be found in the ophth exam. documented in this encounter Plan of Treatment Upcoming Encounters Date Type Department Care Team (Late st Contact Info) Description 11/27/2023 11:45 AM EST Office Visit Ophthalmology, [facility] [address] [place] [address] Armando Hernandez DO [address] [place] [address] 01/22/2024 11:45 AM EDT Office Visit 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
[2024-01-06] MEDS: MAGNESIUM OXIDE 400 MG TAB PO SCH (10:36)
--- NOTE | 2024-01-06 12:52 | XCELERA ---
[id number] \\[id number]
--- NOTE | 2024-01-06 14:20 | Discharge Summary ---
Date of Service January 06, 2024 Admission HPI Per Admitting Provider Tay Godinez is a pleasant 78-year-old male presenting with chest pain. Patient with history of diabetes on metformin, hypertension, hemorrhagic stroke, paroxysmal atrial fibrillation on apixaban anticoagulation as well as CAD status post NSTEMI in February 2023 with AIDAN placed to RCA. Patient follows with cardiology, last seen by Dr. Gilman on 08/07/2023. Patient was watching television this evening around 2200 when he developed some "twinges" in his chest, feeling like muscle tightness. These twinges lasted approximately 10 to 15 minutes then resolved on their own and recurred several times throughout the evening. Patient reports that this felt similar to his cardiac event in February 2023. He denies diaphoresis, shortness of breath, nausea or dizziness. Presently without chest pain or discomfort. No additional complaints at this time. Patient denies fever, chills, cough, shortness of breath, abdominal pain, nausea, vomiting. Denies edema or weight gain. Patient denies exertional chest discomfort. In the ER, he is afebrile, hemodynamically stable. ER course: Aspirin 324 mg Principal Diagnosis chest pain Discharge Exam General: patient resting comfortably, NAD Skin: warm, dry, intact, no rashes or lesions HEENT: NC/AT, PERRL, EOMIlesions, neck supple, trachea midline, no LAD, no thyromegaly, no JVD Heart: +S1/S2, regular, no m/r/g Lungs: equal air entry bilaterally, no rales/rhonchi/wheezes Abd: +BS, soft, NT/ND, no masses/organomegaly/ascites Ext: warm, 2+ pulses in UE/LE bilaterally, no clubbing/cyanosis or edema Neuro: nonfocal, patient AA&O x 4 Discharge Data Allergies Allergy/AdvReac Type Severity Reaction Status Date / Time No Known Allergies Allergy Verified 09/04/23 11:21 Consultations 01/06/24 01:35 ED Decision to Admit Stat Hospital Course (1) Chest pain: 78-year-old male with history of CAD status post NSTEMI in February 2023 with placement of drug-eluting stent to the RCA, hypertension, diabetes and paroxysmal atrial fibrillation on Eliquis anticoagulation presenting with intermittent chest discomfort was started this evening around 2200. Troponin x 1 is within normal limits at 4. EKG with no acute ischemic changes. Patient presently chest pain-free. No report of muscle strain or change in activity, no GI complaints. Of note he does have a mild elevation in lipase = 135 Observation to medical telemetry Trended troponins negative Stress test was negative. No fruther workup as discussed with cardio. No official consult ordered but discussion was made. Will continue metoprolol 12.5 mg p.o. twice daily, losartan 25 mg p.o. daily, Plavix 75 mg p.o. every other day, atorvastatin 40 mg p.o. nightly (2) CAD (coronary artery disease): Patient with CAD status post NSTEMI in February 2023 with placement of drug-eluting stent to the RCA. He denies exertional chest pain. Medical conditions otherwise well-controlled. Admit to medical telemetry for chest pain as noted above Continue home medicationsPlavix every other day, metoprolol, losartan, atorvastatin Plavix every other day due to history of hemorrhagic strokepatient follows with cardiology (3) Paroxysmal A-fib: Presently in normal sinus rhythm. Patient anticoagulated on apixaban 5 mg p.o. twice daily Continue apixaban 5 mg p.o. twice daily Continue metoprolol 12.5 mg p.o. twice daily (4) Hypertension: Blood pressure mildly elevated 149/69 Continue metoprolol 12.5 mg p.o. twice daily Continue losartan 25 mg p.o. daily Continue to monitor (5) Type 2 diabetes mellitus: Chronic. Overall well-controlled. Last hemoglobin A1c = 6.8 on 08/30/2023. Blood sugar = 142 currently. Patient is compliant with metformin Total Time Total Time Spent Total Time Spent (In Minutes): 32 Discharge Plan Discharge Items Patient Disposition: Home - Self-Care Reason For Visit: CHEST PAIN Discharge Diagnosis: chest pain Activity: Resume your previous activity Non-emergency contact: Primary Care Provider Call non-emergency contact if: you have any medication questions Follow-up/Referrals: Caleb Moss DO [Primary Care Provider] - 01/12/24 9:20 am Diet: Carb Consistent or DM2 and Heart Healthy Addtl Attending Provider Instructions: You came in with chest pain. Thankfully, you had a stress test which was negative. Your cardiac markers were also negative. You can be discharged home. Pending Studies at Discharge: No Stand-Alone Forms: My [facility], Smoking Cessation Medications and DC Order Prescriptions: Continued (DME) OneTouch Verio test strips Strip See Rx Instructions .Route Qty: 100 5RF Rx Instructions: As directed for TID testing metoprolol tartrate 25 mg tablet 12.5 mg PO BID Qty: 90 3RF losartan 25 mg tablet 25 mg PO DAILY Qty: 90 3RF finasteride 5 mg tablet 5 mg PO DAILY Qty: 90 3RF Eliquis 5 mg tablet 5 mg PO BID Qty: 180 3RF atorvastatin 40 mg tablet 40 mg PO HS Qty: 90 3RF clopidogrel [Plavix] 75 mg tablet 75 mg PO Q2D Qty: 45 3RF magnesium oxide [MgO] 400 mg (241.3 mg magnesium) tablet 400 mg PO BID Qty: 180 3RF ascorbic acid (vitamin C) 500 mg tablet 500 mg PO DAILY Rhopressa 0.02 % drops 1 drp ophthalmic (eye) QPM latanoprost [Xalatan] 0.005 % drops 1 drp OPB HS brimonidine [Alphagan P] 0.1 % drops 1 drp OPB BID cholecalciferol (vitamin D3) [Vitamin D3] 2,000 unit Tablet 2,000 unit PO QAM Theralogix Prostate 2.4 mg PO DAILY metformin 1,000 mg tablet 1,000 mg PO BID Rx Instructions: TAKE 1 TABLET BY MOUTH TWICE DAILY Discharge Orders: Discharge Order (Routine); Ordered 01/06/24 Ordered By: Jude Deshpande/Other Patient Handouts: High Blood Sugar (Hyperglycemia), Hypoglycemia (Low Blood Sugar), Managing Type 2 Diabetes Admission Data Admit Date/Time: 01/06/24 01:58 Attending Provider: Jude Bautista Admit Provider: Chinyere Camp Primary Care Provider: Caleb Moss Other Providers: Chinyere Camp Other Interventions: Discharge Summary Assessment (RN) Last Done: 01/06/24 16:04 Coding Level of Care Code INP/OBS EV SAME DAY LV 3,85MIN Diagnoses Chest pain R07.9 Chest pain type: unspecified CAD (coronary artery disease) I25.10 Associated angina: unspecified whether angina present Coronary Disease-Associated Artery/Lesion type: unspecified vessel or lesion type [place] vs. transplanted heart: unspecified whether 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, without long-term current use of insulin, macular edema presence unspecified E11.3293 Diabetes mellitus complication detail: with diabetic retinopathy Diabetes mellitus complication status: with ophthalmic complications Diabetes mellitus termite treater helper insulin use: without jail use Diabetes mellitus macular edema: macular edema presence unspecified Diabetic retinopathy severity: with mild nonproliferative retinopathy Laterality: bilateral
--- NOTE | 2024-01-06 14:54 | XCELERA ---
[id number] \\[id number]\[id number]
[2024-01-06] MEDS ORDERED: ATORVASTATIN 40 MG TAB PO SCH (21:00)
[2024-01-06] MEDS ORDERED: LATANOPROST 0.005% OP SOLN 2.5 ML BTL OPB SCH (21:00)
--- NOTE | 2024-01-08 21:42 | Electrocardiogram Report ---
Test Reason : Blood Pressure : / mmHG Vent. Rate : 072 BPM Atrial Rate : 072 BPM P-R Int : 170 ms QRS Dur : 084 ms QT Int : 376 ms P-R-T Axes : 085 -01 089 degrees QTc Int : 411 ms Normal sinus rhythm Normal ECG When compared with ECG of 05-SEP-2023 11:22, Premature atrial complexes are no longer Present Confirmed by Julio Fletcher ([id number]) on 01/08/2024 9:42:28 PM Referred By: REFERRED SELF Confirmed By:Julio Fletcher
== END 2024-01-06 16:05 | disposition home or self-care (01) ==
LOC: 3W 23:46 → ED 23:46 → SUATTDRO 01-06 01:58 → 3W 01-06 02:36